=== PATIENT | male | born 1975 | race African-American/Black ===

== ENCOUNTER 2018-06-02 15:11 | Emergency (ER) | payer SELFPAY ==
[2018-06-02 15:48] LABS: Absolute Monocytes 0.8 K/uL (0.1-1.3); Absolute Neutrophil 8.3 K/uL (1.8-8.0); Basophils % 1.2 % (0-1.3); Eosinophils % 2.2 % (0-4.4); Hematocrit 39.7 % (39.6-49.0); Lymphocytes % 17.6 % (15.3-44.8); MCH 25.3 pg (27.0-35.0); MCV 77.4 fL (80-100); MPV 8.5 fL (7.6-11.3); Monocytes % 7.3 % (3.3-12.3); RBC Red Blood Cell Count 5.13 M/uL (4.33-5.43)
[2018-06-02 16:11] LABS: ALT/SGPT 26 U/L (12-78); AST/SGOT 10 U/L (15-37); Albumin 3.4 g/dL (3.4-5.0); Alkaline Phosphatase 85 U/L (45-117); BUN Blood Urea Nitrogen 12 mg/dL (7-18); Bicarbonate 28 mmol/L (21-32); Bilirubin Direct < 0.1 mg/dL (0-0.2); Bilirubin Total 0.2 mg/dL (0.2-1.0); Glucose Level 154 mg/dL (74-106); Lipase 115 U/L (73-393); Magnesium 2.1 mg/dL (1.8-2.4); Potassium 4.2 mmol/L (3.5-5.1); Protein, Total 7.9 g/dL (6.4-8.2); Sodium Level 139 mmol/L (136-145)
[2018-06-02] MEDS ORDERED: NA CHLORIDE 0.9% 1,000 ML ONE (16:20)
--- NOTE | 2018-06-02 18:05 | RAD REPORT ---
EXAM DESCRIPTION: CTAbdomen Pelvis W Contrast - 06/02/2018 5:57 pm CLINICAL HISTORY: Abdominal pain. ABDOMINAL DISTENTION COMPARISON: Abdomen Pelvis W Contrast dated 01/17/2017; CT ABD PELVIS W CONTRAST dated 09/01/2015 TECHNIQUE: Biphasic CT imaging of the abdomen and pelvis was performed with 100 ml non-ionic IV cont rast. All CT scans are performed using dose optimization technique as appropriate and may include automated exposure control or mA/KV adjustment according to patient size. FINDINGS: The lung bases are clear. Diffuse fatty liver is seen. No focal lesion or intrahepatic biliary dilatation. The spleen, pancreas , adrenal glands and kidneys are within normal limits. No bowel obstruction, free air, free fluid or abscess. The appendix is normal. No evidence of signi ficant lymphadenopathy. No suspicious bony findings. IMPRESSION: No acute intra-abdominal or pelvic finding. Fatty liver.
--- NOTE | 2018-06-02 18:27 | EDPHYS ---
Physician Documentation [facility] Name: Willi Foley Age: 43 yrs Sex: Male : 1975 Arrival Date: 06/02/2018 Time: 15:14 Bed 30 Private MD: ED Physician Abraham Odonnell HPI: 06/02 15:30 This 43 yrs old Black Male presents to ER via Ambulatory with complaints of Abdominal cp Problem. 15:31 The patient presents with abdominal distention that is diffuse. Onset: The cp symptoms/episode began/occurred 1 week(s) ago. The symptoms do not radiate. Associated signs and symptoms: Pertinent positives: shortness of breath, Pertinent negatives: blood in stools, chest pain, constipation, diarrhea, fever, vomiting. The symptoms are described as bloated. Historical: - Allergies: 15:19 No Known Allergies; hb - PMHx: 15:19 None; hb - PSHx: 15:19 None; hb - Immunization history:: Adult Immunizations up to date. - Social history:: Smoking status: Patient/guardian denies using tobacco. - Ebola Screening: : No symptoms or risks identified at this time. ROS: 15:35 Constitutional: Negative for body aches, chills, fever, poor PO intake. cp 15:35 Eyes: Negative for injury, pain, redness, and discharge. cp 15:35 ENT: Negative for drainage from ear(s), ear pain, sore throat, difficulty swallowing, difficulty handling secretions. 15:35 Cardiovascular: Negative for chest pain, edema, palpitations. 15:35 Respiratory: Negative for cough, shortness of breath, wheezing. 15:35 Abdomen/GI: Positive for nausea, vomiting, abdominal bloating, Negative for diarrhea, constipation, anorexia, black/tarry stool, rectal bleeding. 15:35 Back: Negative for pain at rest, pain with movement. 15:35 : Negative for urinary symptoms, testicular pain 15:35 Skin: Negative for cellulitis, rash. 15:35 Neuro: Negative for altered mental status, headache, weakness. 15:35 All other systems are negative. Exam: 15:45 Constitutional: The patient appears in no acute distress, alert, awake, cp non-diaphoretic, non-toxic, well developed, well nourished. 15:45 Head/Face: Normocephalic, atraumatic. Eyes: Pupils equal round and reactive to light, cp extra-ocular motions intact. Lids and lashes normal. Conjunctiva and sclera are non-icteric and not injected. Cornea within normal limits. Periorbital areas with no swelling, redness, or edema. ENT: Nares patent. No nasal discharge, no septal abnormalities noted. Tympanic membranes are normal and external auditory canals are clear. Oropharynx with no redness, swelling, or masses, exudates, or evidence of obstruction, uvula midline. Mucous membranes moist. Chest/axilla: Normal chest wall appearance and motion. Nontender with no deformity. No lesions are appreciated. 15:45 Cardiovascular: Rate: normal, Rhythm: regular, Heart sounds: murmur, not appreciated, Edema: is not appreciated, JVD: is not appreciated. 15:45 Respiratory: the patient does not display signs of respiratory distress, Respirations: normal, no use of accessory muscles, no retractions, no splinting, no tachypnea, labored breathing, is not present, Breath sounds: are clear throughout, no decreased breath sounds, no stridor, no wheezing. 15:45 Abdomen/GI: Inspection: abdomen appears normal, Bowel sounds: active, all quadrants, Palpation: soft, in all quadrants, mild abdominal tenderness, in the epigastric area and right upper quadrant, rebound tenderness, is not appreciated, voluntary guarding, is not appreciated, involuntary guarding, is not appreciated. 15:45 Back: pain, is absent, ROM is normal. 15:45 Skin: cellulitis, is not appreciated, no rash present. 15:45 Neuro: Orientation: to person, place \T\ time. Mentation: lucid, able to follow commands, Cerebellar function: is grossly normal, Motor: moves all fours, strength is normal. Vital Signs: 15:18 BP 135 / 80; Pulse 74; Resp 16; Temp 98.1; Pulse Ox 97% on R/A; Weight 127.01 kg; hb Height 5 ft. 9 in. (175.26 cm); Pain 0/10; 16:50 BP 133 / 76; Pulse 78; Resp 18; Pulse Ox 100% on R/A; mg2 19:01 BP 132 / 78; Pulse 77; Resp 18; Pulse Ox 100% on R/A; Pain 0/10; mg2 15:18 Body Mass Index 41.35 (127.01 kg, 175.26 cm) hb MDM: 15:22 Patient medically screened. cp 16:00 Differential diagnosis: cholecystitis, Cholelithiasis, gastritis, pancreatitis, Peptic cp Ulcer Disease, Perf. Duodenal Ulcer, Perf. Gastric Ulcer, Pyelonephritis. 18:25 Data reviewed: vital signs, nurses notes, lab test result(s), radiologic studies, CT cp scan, and as a result, I will discharge patient. 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 18:25 Special discussion: Based on the patient's Hx, exam, and Dx evaluation, there is no cp indication for emergent surgery or inpatient Tx. It is understood by the patient/guardian that if the Sx's persist or worsen they need to return immediately for re-evaluation. 06/02 15:30 Order name: Basic Metabolic Panel; Complete Time: 16:12 cp 06/02 16:12 Interpretation: Normal except: GLUC 154. cp 06/02 15:30 Order name: CBC with Diff; Complete Time: 15:59 cp 06/02 16:00 Interpretation: Normal except: WBC 11.6; HGB 13.0; MCV 77.4; MCH 25.3; RDW 16.7; NEUT A cp 8.3. 06/02 15:30 Order name: Creatinine for Radiology; Complete Time: 16:27 cp 06/02 16:27 Interpretation: Reviewed. cp 06/02 15:30 Order name: Hepatic Function; Complete Time: 16:12 cp 06/02 16:12 Interpretation: Normal except: AST 10; GLOB 4.5; A/G 0.8. cp 06/02 15:30 Order name: Lipase; Complete Time: 16:12 cp 06/02 15:30 Order name: Magnesium; Complete Time: 16:12 cp 06/02 15:30 Order name: IV Saline Lock; Complete Time: 15:37 cp 06/02 15:30 Order name: Labs collected and sent; Complete Time: 15:37 cp 06/02 16:03 Order name: CT Abd/Pelvis - W/Contrast: may give oral contrast; Complete Time: 18:12 cp 06/02 18:12 Interpretation: Report reviewed. cp 06/02 18:12 Order name: PO challenge; Complete Time: 18:44 cp 06/02 18:52 Order name: Urine Dipstick-Ancillary (obtain specimen); Complete Time: 18:56 cp 06/02 18:52 Order name: Urine Microscopic Only cp 06/02 19:01 Order name: Urine Dipstick--Ancillary (enter results) cc Administered Medications: 16:17 Drug: NS 0.9% 1000 ml Route: IV; Rate: 1 bolus; Site: right antecubital; mg2 19:01 Follow up: Response: No adverse reaction; IV Status: Completed infusion mg2 Disposition: 06/03 10:22 Co-signature as Attending Physician, Abraham Odonnell MD. rn Disposition: 06/02/18 18:26 Discharged to Home. Impression: Unspecified abdominal pain. - Condition is Stable. - Discharge Instructions: Abdominal Pain, Adult. - Medication Reconciliation Form, Thank You Letter, Antibiotic Education, Prescription Opioid Use form. - Follow up: Scott Cantor MD; When: 2 - 3 days; Reason: Recheck today's complaints. Signatures: Dispatcher [employer] EDAbraham Salcedo MD MD rn Page, Corey, PA PA cp Vicki Acevedo RN RN hb Gardose, Michele, RN RN mg2 Corrections: (The following items were deleted from the chart) 06/02 19:02 18:26 06/02/2018 18:26 Discharged to Home. Impression: Unspecified abdominal pain. mg2 Condition is Stable. Forms are Medication Reconciliation Form, Thank You Letter, Antibiotic Education, Prescription Opioid Use. Follow up: Scott Cantor; When: 2 - 3 days; Reason: Recheck today's complaints. cp
--- NOTE | 2018-06-02 18:27 | ER ---
Nurse's Notes [facility] Name: Willi Foley Age: 43 yrs Sex: Male : 1975 Arrival Date: 06/02/2018 Time: 15:14 Bed 30 Private MD: Diagnosis: Unspecified abdominal pain Presentation: 06/02 15:15 Presenting complaint: Patient states: Upper abdominal bloating x 1 week. Reports normal hb bowel habits. Transition of care: patient was not received from another setting of care. Onset of symptoms was May 27, 2018. Risk Assessment: Do you want to hurt yourself or someone else? Patient reports no desire to harm self or others. Care prior to arrival: None. 15:15 Method Of Arrival: Ambulatory hb 15:15 Acuity: RESHMA 3 hb 15:30 Initial Sepsis Screen: Does the patient meet any 2 criteria? No. Patient's initial mg2 sepsis screen is negative. Does the patient have a suspected source of infection? No. Patient's initial sepsis screen is negative. Historical: - Allergies: 15:19 No Known Allergies; hb - PMHx: 15:19 None; hb - PSHx: 15:19 None; hb - Immunization history:: Adult Immunizations up to date. - Social history:: Smoking status: Patient/guardian denies using tobacco. - Ebola Screening: : No symptoms or risks identified at this time. Screenin:28 Abuse screen: Denies threats or abuse. Denies injuries from another. Nutritional mg2 screening: No deficits noted. Tuberculosis screening: No symptoms or risk factors identified. Fall Risk None identified. Assessment: 15:28 General: Appears in no apparent distress. comfortable, Behavior is calm, cooperative. mg2 Pain: Complains of pain in abdomen Pain does not radiate. Pain currently is 3 out of 10 on a pain scale. Quality of pain is described as bloating Pain began gradually, 1 week ago Is intermittent. Neuro: Level of Consciousness is awake, alert, obeys commands, Oriented to person, place, time, situation. Cardiovascular: Capillary refill < 3 seconds Patient's skin is warm and dry. Respiratory: Airway is patent Respiratory effort is even, unlabored, Respiratory pattern is regular, symmetrical. GI: Abdomen is round Reports lower abdominal pain, upper abdominal pain, bloating. : No signs and/or symptoms were reported regarding the genitourinary system. EENT: No signs and/or symptoms were reported regarding the EENT system. Derm: Skin is intact, is healthy with good turgor, Skin is pink, warm \T\ dry. normal. Musculoskeletal: Circulation, motion, and sensation intact. Vital Signs: 15:18 BP 135 / 80; Pulse 74; Resp 16; Temp 98.1; Pulse Ox 97% on R/A; Weight 127.01 kg; hb Height 5 ft. 9 in. (175.26 cm); Pain 0/10; 16:50 BP 133 / 76; Pulse 78; Resp 18; Pulse Ox 100% on R/A; mg2 19:01 BP 132 / 78; Pulse 77; Resp 18; Pulse Ox 100% on R/A; Pain 0/10; mg2 15:18 Body Mass Index 41.35 (127.01 kg, 175.26 cm) hb ED Course: 15:14 Patient arrived in ED. as 15:18 Triage completed. hb 15:19 Arm band placed on left wrist. hb 15:20 Gareth Huddleston PA is PHCP. cp 15:20 Abraham Odonnell MD is Attending Physician. cp 15:20 Pradip Esquivel, EDENILSON is Primary Nurse. mg2 15:28 No provider procedures requiring assistance completed. mg2 15:31 Patient has correct armband on for positive identification. Bed in low position. Call mg2 light in reach. Side rails up X 1. Door closed. Warm blanket given. 15:37 Inserted saline lock: 22 gauge in right antecubital area, using aseptic technique. mg2 Blood collected. 17:[address] nj 17:57 CT Abd/Pelvis - W/Contrast: may give oral contrast In Process Unspecified. EDMS 17:57 CT completed. Patient tolerated procedure well. Patient moved back from PR. nj 18:25 Scott Cantor MD is Referral Physician. cp 19:02 IV discontinued, intact, bleeding controlled, No redness/swelling at site. Pressure mg2 dressing applied. Administered Medications: 16:17 Drug: NS 0.9% 1000 ml Route: IV; Rate: 1 bolus; Site: right antecubital; mg2 19:01 Follow up: Response: No adverse reaction; IV Status: Completed infusion mg2 Outcome: 18:26 Discharge ordered by . cp 19:02 Discharged to home ambulatory, with family. mg2 19:02 Condition: stable 19:02 Discharge instructions given to patient, family, Instructed on discharge instructions, follow up and referral plans. Demonstrated understanding of instructions, follow-up care. 19:02 Patient left the ED. mg2 Signatures: Dispatcher [employer] Lianne Greenfield Corey, PA PA cp Baxter, Heather, EDENILSON RN Severiano Greenberg Michele, RN RN mg2
[2018-06-02 19:10] LABS: Urine Blood 2+ (NEG); Urine Glucose NEGATIVE (NEG); Urine Protein NEGATIVE (NEG); Urine pH 6.5 (5.0-7.0)
[2018-06-02 19:27] LABS: Urine Bacteria <20 /HPF (NONE SEEN); Urine Culture Reflex Order NOT NEEDED
== END 2018-06-02 19:02 | disposition home or self-care (01) ==
LOC: ER 15:11
DX: R10.9 Unspecified abdominal pain (principal)
CPT/HCPCS: 36415; 74177; 80048; 80076; 81003; 81015; 83690; 83735; 85025; 96360; 96361; 99284; J7030; Q9967

== ENCOUNTER 2018-08-07 20:45 | Emergency (ER) | payer SELFPAY ==
[2018-08-07] MEDS ORDERED: ONDANSETRON 4 MG (ODT) TAB ONE (21:28)
--- NOTE | 2018-08-07 21:57 | ER ---
Nurse's Notes [facility] Name: Willi Foley Age: 43 yrs Sex: Male : 1975 Arrival Date: 08/07/2018 Time: 20:48 Bed 11 Private MD: Diagnosis: Acute upper respiratory infection, unspecified Presentation: 08/07 20:54 Presenting complaint: Patient states: Cough, congestion, eyes itching since Tuesday. aj1 Patient denies fever. Transition of care: patient was not received from another setting of care. Onset of symptoms was July 2018. Risk Assessment: Do you want to hurt yourself or someone else? Patient reports no desire to harm self or others. Initial Sepsis Screen: Does the patient meet any 2 criteria? No. Patient's initial sepsis screen is negative. Does the patient have a suspected source of infection? Yes: Productive cough/pneumonia. Care prior to arrival: None. 20:54 Method Of Arrival: Ambulatory aj1 20:54 Acuity: RESHMA 4 aj1 Triage Assessment: 20:57 General: Appears in no apparent distress. comfortable, Behavior is calm, cooperative, aj1 appropriate for age. Pain: Denies pain. EENT: Reports nasal congestion nasal discharge. Neuro: Level of Consciousness is awake, alert, obeys commands. Cardiovascular: Patient's skin is warm and dry. Respiratory: Reports cough that is productive, Airway is patent Respiratory effort is even, unlabored, Respiratory pattern is regular, symmetrical. Historical: - Allergies: 20:57 No Known Allergies; aj1 - Home Meds: 20:57 Benadryl Oral [Active]; aj1 - PMHx: 20:57 None; aj1 - PSHx: 20:57 right testicle removed; aj1 - Immunization history:: Flu vaccine is not up to date. - Social history:: Smoking status: Patient/guardian denies using tobacco. - Ebola Screening: : Patient denies travel to an Ebola-affected area in the 21 days before illness onset. - Family history:: not pertinent. - Hospitalizations: : No recent hospitalization is reported. Screenin:10 Abuse screen: Denies threats or abuse. Denies injuries from another. Nutritional aa1 screening: No deficits noted. Tuberculosis screening: No symptoms or risk factors identified. Fall Risk None identified. Assessment: 21:10 General: Appears in no apparent distress. comfortable, Behavior is calm, cooperative, aa1 appropriate for age. Pain: Denies pain. Neuro: Level of Consciousness is awake, alert, obeys commands, Oriented to person, place, time, situation, Moves all extremities. Full function Gait is steady, Speech is normal. Respiratory: Reports cough that is non-productive, Airway is patent Respiratory effort is even, unlabored, Respiratory pattern is regular, symmetrical, Breath sounds are clear bilaterally. GI: Reports nausea, Patient currently denies abdominal pain, diarrhea, vomiting. : No signs and/or symptoms were reported regarding the genitourinary system. EENT: Throat is clear Reports nasal congestion. Derm: Skin is intact, is healthy with good turgor, Skin is pink, warm \T\ dry. Musculoskeletal: Circulation, motion, and sensation intact. Capillary refill < 3 seconds. 22:12 Reassessment: Patient appears in no apparent distress at this time. Patient is alert, aa1 oriented x 3, equal unlabored respirations, skin warm/dry/pink. Discussed d/c \T\ f/u instructions with pt \T\ spouse; denies questions or concerns at this time. Vital Signs: 20:57 BP 151 / 83; Pulse 81; Resp 18; Temp 97.8; Pulse Ox 98% on R/A; Weight 127.01 kg (R); aj1 Height 5 ft. 9 in. (175.26 cm) (R); Pain 0/10; 22:12 BP 144 / 86; Pulse 83; Resp 18; Temp 97.9; Pulse Ox 97% on R/A; aa1 20:57 Body Mass Index 41.35 (127.01 kg, 175.26 cm) aj1 ED Course: 20:48 Patient arrived in ED. al2 20:56 Triage completed. aj1 20:57 Arm band placed on Patient placed in an exam room. aj1 20:59 [facility] Belle [facility]NP [facility] kav 20:59 Gareth Erwin MD is Attending Physician. kav 21:10 Patient has correct armband on for positive identification. Call light in reach. aa1 21:17 Isela Tucker, RN is Primary Nurse. aa1 22:12 No provider procedures requiring assistance completed. Patient did not have IV access aa1 during this emergency room visit. Administered Medications: 21:22 Drug: Zofran 4 mg Route: PO; aa1 22:12 Follow up: Response: No adverse reaction; Nausea is decreased aa1 Outcome: 21:57 Discharge ordered by . walter 22:12 Discharged to home ambulatory, with family. aa1 22:12 Condition: good 22:12 Discharge instructions given to patient, family, Instructed on discharge instructions, follow up and referral plans. medication usage, Demonstrated understanding of instructions, follow-up care, medications, Prescriptions given X 2. 22:13 Patient left the ED. aa1 Signatures: Lu Nevarez RN RN aj1 Isela Tucker RN RN aa1 Delicia Belle, VALIDATION ARCHITECT VALIDATION ARCHITECT Carmina Chambers
--- NOTE | 2018-08-07 21:57 | EDPHYS ---
Physician Documentation [facility] Name: Willi Foley Age: 43 yrs Sex: Male : 1975 Arrival Date: 08/07/2018 Time: 20:48 Bed 11 Private MD: ED Physician Gareth Erwin HPI: 08/07 20:59 This 43 yrs old Black Male presents to ER via Ambulatory with complaints of Flu kav Symptoms. 21:31 Onset: The symptoms/episode began/occurred acutely, 1 day(s) ago. Associated signs and kav symptoms: Pertinent positives: fever. Modifying factors: The patient symptoms are alleviated by nothing. The patient has not experienced similar symptoms in the past. The patient has not recently seen a physician. 21:32 Modifying factors: there are no obvious modifying factors. Associated signs and kav symptoms: Pertinent positives: myalgias, nausea. Severity of symptoms: At their worst the symptoms were moderate this morning. Historical: - Allergies: 20:57 No Known Allergies; aj1 - Home Meds: 20:57 Benadryl Oral [Active]; aj1 - PMHx: 20:57 None; aj1 - PSHx: 20:57 right testicle removed; aj1 - Immunization history:: Flu vaccine is not up to date. - Social history:: Smoking status: Patient/guardian denies using tobacco. - Ebola Screening: : Patient denies travel to an Ebola-affected area in the 21 days before illness onset. - Family history:: not pertinent. - Hospitalizations: : No recent hospitalization is reported. ROS: 21:35 Eyes: Negative for injury, pain, redness, and discharge, ENT: Negative for injury, kav pain, and discharge, Neck: Negative for injury, pain, and swelling, Cardiovascular: Negative for chest pain, palpitations, and edema, Respiratory: Negative for shortness of breath, cough, wheezing, and pleuritic chest pain, Abdomen/GI: Negative for abdominal pain, nausea, vomiting, diarrhea, and constipation, Back: Negative for injury and pain, : Negative for injury, bleeding, discharge, and swelling, MS/Extremity: Negative for injury and deformity, Skin: Negative for injury, rash, and discoloration, Neuro: Negative for headache, weakness, numbness, tingling, and seizure, Psych: Negative for depression, anxiety, suicide ideation, homicidal ideation, and hallucinations, Allergy/Immunology: Negative for hives, rash, and allergies, Endocrine: Negative for neck swelling, polydipsia, polyuria, polyphagia, and marked weight changes, Hematologic/Lymphatic: Negative for swollen nodes, abnormal bleeding, and unusual bruising. 21:35 Constitutional: Positive for body aches, fever. Exam: 21:35 Head/Face: Normocephalic, atraumatic. Eyes: Pupils equal round and reactive to light, kav extra-ocular motions intact. Lids and lashes normal. Conjunctiva and sclera are non-icteric and not injected. Cornea within normal limits. Periorbital areas with no swelling, redness, or edema. ENT: Nares patent. No nasal discharge, no septal abnormalities noted. Tympanic membranes are normal and external auditory canals are clear. Oropharynx with no redness, swelling, or masses, exudates, or evidence of obstruction, uvula midline. Mucous membranes moist. Neck: Trachea midline, no thyromegaly or masses palpated, and no cervical lymphadenopathy. Supple, full range of motion without nuchal rigidity, or vertebral point tenderness. No Meningismus. Chest/axilla: Normal chest wall appearance and motion. Nontender with no deformity. No lesions are appreciated. Cardiovascular: Regular rate and rhythm with a normal S1 and S2. No gallops, murmurs, or rubs. Normal PMI, no JVD. No pulse deficits. Respiratory: Lungs have equal breath sounds bilaterally, clear to auscultation and percussion. No rales, rhonchi or wheezes noted. No increased work of breathing, no retractions or nasal flaring. Abdomen/GI: Soft, non-tender, with normal bowel sounds. No distension or tympany. No guarding or rebound. No evidence of tenderness throughout. Back: No spinal tenderness. No costovertebral tenderness. Full range of motion. Skin: Warm, dry with normal turgor. Normal color with no rashes, no lesions, and no evidence of cellulitis. MS/ Extremity: Pulses equal, no cyanosis. Neurovascular intact. Full, normal range of motion. Neuro: Awake and alert, GCS 15, oriented to person, place, time, and situation. Cranial nerves II-XII grossly intact. Motor strength 5/5 in all extremities. Sensory grossly intact. Cerebellar exam normal. Normal gait. Psych: Awake, alert, with orientation to person, place and time. Behavior, mood, and affect are within normal limits. 21:35 Constitutional: The patient appears in no acute distress, alert, awake, comfortable, non-diaphoretic, non-toxic, well developed, well hydrated, well groomed, well nourished, febrile. Vital Signs: 20:57 BP 151 / 83; Pulse 81; Resp 18; Temp 97.8; Pulse Ox 98% on R/A; Weight 127.01 kg (R); aj1 Height 5 ft. 9 in. (175.26 cm) (R); Pain 0/10; 22:12 BP 144 / 86; Pulse 83; Resp 18; Temp 97.9; Pulse Ox 97% on R/A; aa1 20:57 Body Mass Index 41.35 (127.01 kg, 175.26 cm) aj1 MDM: 20:59 Medical screening is not applicable. kav 08/07 20:59 Order name: Influenza Screen (a \T\ B); Complete Time: 21:56 kav Administered Medications: 21:22 Drug: Zofran 4 mg Route: PO; aa1 22:12 Follow up: Response: No adverse reaction; Nausea is decreased aa1 Disposition: 08/08 06:40 Co-signature as Attending Physician, Gareth Erwin MD I agree with the assessment and omid plan of care. Disposition: 08/07/18 21:57 Discharged to Home. Impression: Acute upper respiratory infection, unspecified. - Condition is Stable. - Discharge Instructions: Upper Respiratory Infection, Adult. - Prescriptions for Zithromax Z- Rock 250 mg Oral Tablet - take 1 tablet by ORAL route as directed for 5 days Day 1 - take two (2) tablets one time. Day 2, 3, 4 , 5 take one (1) tablet once daily.; 6 tablet. benzonatate 100 mg Oral Capsule - take 1 capsule by ORAL route 3 times per day; 30 capsule. - Work release form, Medication Reconciliation Form, Thank You Letter, Antibiotic Education form. - Follow up: Private Physician; When: 2 - 3 days; Reason: Recheck today's complaints, Continuance of care, Re-evaluation by your physician. - Problem is new. - Symptoms are unchanged. Signatures: Dispatcher MedHoNew Sunrise Regional Treatment CenterLu Branham RN RN aj1 Isela Tucker RN RN aa1 Gareth Erwin, Delicia Chavez MD, cha, SCALE MODEL MAKER SCALE MODEL MAKER kav Corrections: (The following items were deleted from the chart) 08/07 22:13 21:57 08/07/2018 21:57 Discharged to Home. Impression: Acute upper respiratory aa1 infection, unspecified. Condition is Stable. Forms are Medication Reconciliation Form, Thank You Letter, Antibiotic Education, Prescription Opioid Use. Follow up: Private Physician; When: 2 - 3 days; Reason: Recheck today's complaints, Continuance of care, Re-evaluation by your physician. Problem is new. Symptoms are unchanged. kav
== END 2018-08-07 22:13 | disposition home or self-care (01) ==
LOC: ER 20:45
DX: J06.9 Acute upper respiratory infection, unspecified (principal)
CPT/HCPCS: 87804; 99283

== ENCOUNTER 2018-08-31 15:23 | Emergency (ER) | payer SELFPAY ==
[2018-08-31 17:25] LABS: Absolute Lymphocytes (CBC) 2.3 K/uL (0.7-4.9); Absolute Monocytes 1.2 K/uL (0.1-1.3); Absolute Neutrophil 8.2 K/uL (1.8-8.0); Basophils % 1.5 % (0-1.3); Eosinophils % 2.5 % (0-4.4); Hematocrit 40.6 % (39.6-49.0); Lymphocytes % 18.8 % (15.3-44.8); MPV 8.4 fL (7.6-11.3); Monocytes % 10.1 % (3.3-12.3); RBC Red Blood Cell Count 5.18 M/uL (4.33-5.43)
[2018-08-31 17:53] LABS: BUN Blood Urea Nitrogen 12 mg/dL (7-18); Bicarbonate 32 mmol/L (21-32); Glucose Level 123 mg/dL (74-106); Magnesium 2.2 mg/dL (1.8-2.4); Potassium 4.4 mmol/L (3.5-5.1); Sodium Level 139 mmol/L (136-145); Troponin (Emerg Dept Use Only) < 0.02 ng/mL (0.0-0.045)
[2018-08-31 17:59] LABS: NT PRO-BNP < 5 pg/mL (<125)
--- NOTE | 2018-08-31 18:30 | RAD REPORT ---
EXAM DESCRIPTION: [place] Single View08/31/2018 6:14 pm CLINICAL HISTORY: Chest pain COMPARISON: 2017 FINDINGS: The lungs appear clear of acute infiltrate. The heart is normal size IMPRESSION: No acute abnormalities displayed
--- NOTE | 2018-08-31 19:14 | ER ---
Nurse's Notes [facility] Name: Willi Foley Age: 43 yrs Sex: Male : 1975 Arrival Date: 08/31/2018 Time: 15:29 Bed 16 Private MD: None, None Diagnosis: Cough;Chest pain on breathing Presentation: 08/31 15:41 Presenting complaint: Patient states: pain to my L lower chest wall, started this morning. I am coughing and its worse when I cough. no congestion, no sore throat, no fever. just started when I got up with morning. Transition of care: patient was not received from another setting of care. Onset of symptoms was August 31, 2018 at 08:00. Risk Assessment: Do you want to hurt yourself or someone else? Patient reports no desire to harm self or others. Initial Sepsis Screen: Does the patient meet any 2 criteria? No. Patient's initial sepsis screen is negative. Does the patient have a suspected source of infection? No. Patient's initial sepsis screen is negative. Care prior to arrival: None. 15:41 Acuity: RESHMA 3 15:41 Method Of Arrival: Ambulatory Triage Assessment: 15:41 General: Appears in no apparent distress. uncomfortable, Behavior is calm, cooperative, ch appropriate for age. Pain: Complains of pain in left lateral anterior chest and left breast Pain currently is 8 out of 10 on a pain scale. Pain began gradually, several hours ago. Neuro: No deficits noted. Respiratory: Airway is patent Respiratory effort is even, unlabored. Historical: - Allergies: 15:41 No Known Allergies; - Home Meds: 15:41 none [Active]; - PMHx: 15:41 None; - PSHx: 15:41 None; - Immunization history:: Adult Immunizations Flu vaccine is not up to date. - Social history:: Smoking status: Patient/guardian denies using tobacco, Patient/guardian denies using alcohol, street drugs. - Ebola Screening: : Patient negative for fever greater than or equal to 101.5 degrees Fahrenheit, and additional compatible Ebola Virus Disease symptoms Patient denies exposure to infectious person Patient denies travel to an Ebola-affected area in the 21 days before illness onset No symptoms or risks identified at this time. Screenin:55 Abuse screen: Denies threats or abuse. Nutritional screening: No deficits noted. rb1 Tuberculosis screening: No symptoms or risk factors identified. Fall Risk None identified. Assessment: 16:55 General: Appears in no apparent distress. comfortable, obese, Behavior is calm, rb1 cooperative, Denies fever. Pain: Complains of pain in left lateral anterior chest. Neuro: Level of Consciousness is awake, alert, obeys commands, Oriented to person, place, time, situation. Cardiovascular: Capillary refill < 3 seconds is brisk in bilateral fingers. Respiratory: Airway is patent Respiratory effort is even, unlabored, Respiratory pattern is regular, symmetrical. Respiratory: Reports cough that is non-productive. GI: No signs and/or symptoms were reported involving the gastrointestinal system. : No signs and/or symptoms were reported regarding the genitourinary system. Derm: Skin is dry, Skin is normal, Skin temperature is warm. 17:55 Reassessment: Patient appears in no apparent distress at this time. No changes from rb1 previously documented assessment. 18:45 Reassessment: Patient appears in no apparent distress at this time. Patient and/or rb1 family updated on plan of care and expected duration. Pain level reassessed. Patient is alert, oriented x 3, equal unlabored respirations, skin warm/dry/pink. 20:08 Reassessment: Patient appears in no apparent distress at this time. Patient and/or tl2 family updated on plan of care and expected duration. Pain level reassessed. Patient is alert, oriented x 3, equal unlabored respirations, skin warm/dry/pink. pt verbalized understanding of discharge instructions, need for follow up. Vital Signs: 15:41 BP 116 / 92; Pulse 83; Resp 16; Temp 99.7; Pulse Ox 99% on R/A; Weight 136.08 kg; ch Height 5 ft. 9 in. (175.26 cm); Pain 8/10; 16:40 BP 128 / 84; Pulse 77; Resp 17; Pulse Ox 99% on R/A; rb1 17:40 BP 136 / 79; Pulse 73; Resp 16; Pulse Ox 97% on R/A; rb1 18:20 BP 136 / 79; Pulse 72; Resp 17; Temp 97.7; Pulse Ox 97% ; hs1 20:08 BP 124 / 70; Pulse 74; Resp 18; Pulse Ox 96% on R/A; tl2 15:41 Body Mass Index 44.30 (136.08 kg, 175.26 cm) ED Course: 15:29 Patient arrived in ED. sb2 15:29 None, None is Private Physician. sb2 15:41 Triage completed. ch 15:41 Arm band placed on left wrist. Patient placed in waiting room. EKG completed in triage. Results shown to MD. 16:07 EKG done, by information technology administrator. reviewed by Josh Bradford MD. 3 16:49 Yolie Grossman FNP-C is [facility]. kb 16:49 Josh Bradford MD is Attending Physician. kb 16:50 Lorenza Rosario, RN is Primary Nurse. rb1 16:55 Patient has correct armband on for positive identification. Bed in low position. Call rb1 light in reach. Side rails up X 1. campus monitor on. Pulse ox on. NIBP on. 17:15 Inserted saline lock: 22 gauge in left antecubital area, using aseptic technique. Blood rb1 collected. 17:23 Flu Sent. rb1 18:15 XRAY Chest (1 view) In Process Unspecified. EDNJ 18:55 Report given to EDENILSON Bales. rb1 18:59 EKG done, by ED staff, reviewed by Yolie GARCIA. 5 20:08 No provider procedures requiring assistance completed. IV discontinued, intact, tl2 bleeding controlled, No redness/swelling at site. Pressure dressing applied. Administered Medications: 19:53 Drug: TORadol 30 mg Route: IVP; Site: left antecubital; tl2 20:12 Follow up: Response: No adverse reaction; Medication administered at discharge. tl2 Outcome: 19:14 Discharge ordered by . kb 20:11 Discharged to home ambulatory, with family. tl2 20:11 Condition: stable 20:11 Discharge instructions given to patient, family, Instructed on discharge instructions, follow up and referral plans. medication usage, Demonstrated understanding of instructions, follow-up care, medications. 20:13 Patient left the ED. tl2 Signatures: Dispatcher [employer] EDNJ Yolie Grossman FNP-C FNP-Ckb Hammond, Christina, RN RN Lorenza Rosario, Amairani Wilkerson RN, RN RN tl2 Anali Hoang 5 Ofelia Jerome 2 Melinda Daly sm3 Rachelle oRlle hs1
--- NOTE | 2018-08-31 19:14 | EDPHYS ---
Physician Documentation [facility] Name: Willi Foley Age: 43 yrs Sex: Male : 1975 Arrival Date: 08/31/2018 Time: 15:29 Bed 16 Private MD: None, None ED Physician Josh Bradford HPI: 08/31 17:12 This 43 yrs old Black Male presents to ER via Ambulatory with complaints of Painful kb Cough. 17:12 The patient or guardian reports cough, that is intermittent, described as mild, with no kb sputum. Onset: The symptoms/episode began/occurred this morning. Severity of symptoms: At their worst the symptoms were moderate, in the emergency department the symptoms are unchanged. Modifying factors: The symptoms are alleviated by nothing, the symptoms are aggravated by nothing. Associated signs and symptoms: Pertinent positives: chest pain, Pertinent negatives: diarrhea, ear ache, fever, nausea, rhinorrhea, sore throat, vomiting. The patient has not experienced similar symptoms in the past. The patient has not recently seen a physician. Pt reports cough and left lower anterior chest pain that started this morning around 0900. States chest pain is worse with cough and movement. Historical: - Allergies: 15:41 No Known Allergies; ch - Home Meds: 15:41 none [Active]; ch - PMHx: 15:41 None; ch - PSHx: 15:41 None; ch - Immunization history:: Adult Immunizations Flu vaccine is not up to date. - Social history:: Smoking status: Patient/guardian denies using tobacco, Patient/guardian denies using alcohol, street drugs. - Ebola Screening: : Patient negative for fever greater than or equal to 101.5 degrees Fahrenheit, and additional compatible Ebola Virus Disease symptoms Patient denies exposure to infectious person Patient denies travel to an Ebola-affected area in the 21 days before illness onset No symptoms or risks identified at this time. ROS: 17:10 Constitutional: Negative for fever, chills, and weight loss, ENT: Negative for injury, kb pain, and discharge, Abdomen/GI: Negative for abdominal pain, nausea, vomiting, diarrhea, and constipation, Back: Negative for injury and pain, : Negative for injury, bleeding, discharge, and swelling, MS/Extremity: Negative for injury and deformity, Skin: Negative for injury, rash, and discoloration, Neuro: Negative for headache, weakness, numbness, tingling, and seizure. 17:10 Cardiovascular: Positive for chest pain, with cough, with movement, of the left lateral anterior chest, Negative for edema, orthopnea, palpitations, paroxysmal nocturnal dyspnea. 17:10 Respiratory: Positive for cough, Negative for dyspnea on exertion, hemoptysis, orthopnea, pleurisy, shortness of breath, sputum production, wheezing. Exam: 17:11 Constitutional: This is a well developed, well nourished patient who is awake, alert, kb and in no acute distress. Head/Face: Normocephalic, atraumatic. Neck: Trachea midline, no thyromegaly or masses palpated, and no cervical lymphadenopathy. Supple, full range of motion without nuchal rigidity, or vertebral point tenderness. No Meningismus. Chest/axilla: Normal chest wall appearance and motion. Nontender with no deformity. No lesions are appreciated. Cardiovascular: Regular rate and rhythm with a normal S1 and S2. No gallops, murmurs, or rubs. Normal PMI, no JVD. No pulse deficits. Respiratory: Lungs have equal breath sounds bilaterally, clear to auscultation and percussion. No rales, rhonchi or wheezes noted. No increased work of breathing, no retractions or nasal flaring. Abdomen/GI: Soft, non-tender, with normal bowel sounds. No distension or tympany. No guarding or rebound. No evidence of tenderness throughout. Skin: Warm, dry with normal turgor. Normal color with no rashes, no lesions, and no evidence of cellulitis. MS/ Extremity: Pulses equal, no cyanosis. Neurovascular intact. Full, normal range of motion. Neuro: Awake and alert, GCS 15, oriented to person, place, time, and situation. Cranial nerves II-XII grossly intact. Motor strength 5/5 in all extremities. Sensory grossly intact. Cerebellar exam normal. Normal gait. Vital Signs: 15:41 BP 116 / 92; Pulse 83; Resp 16; Temp 99.7; Pulse Ox 99% on R/A; Weight 136.08 kg; ch Height 5 ft. 9 in. (175.26 cm); Pain 8/10; 16:40 BP 128 / 84; Pulse 77; Resp 17; Pulse Ox 99% on R/A; rb1 17:40 BP 136 / 79; Pulse 73; Resp 16; Pulse Ox 97% on R/A; rb1 18:20 BP 136 / 79; Pulse 72; Resp 17; Temp 97.7; Pulse Ox 97% ; hs1 20:08 BP 124 / 70; Pulse 74; Resp 18; Pulse Ox 96% on R/A; tl2 15:41 Body Mass Index 44.30 (136.08 kg, 175.26 cm) MDM: 16:49 Patient medically screened. kb 17:11 Data reviewed: vital signs, nurses notes. Data interpreted: Pulse oximetry: on room air kb is 99 %. Interpretation: normal. 19:13 Counseling: I had a detailed discussion with the patient and/or guardian regarding: the kb historical points, exam findings, and any diagnostic results supporting the discharge/admit diagnosis, lab results, radiology results, the need for outpatient follow up, a family practitioner, to return to the emergency department if symptoms worsen or persist or if there are any questions or concerns that arise at home. 08/31 16:53 Order name: Basic Metabolic Panel; Complete Time: 18:05 kb 08/31 16:53 Order name: CBC with Diff; Complete Time: 17:27 kb 08/31 16:53 Order name: Magnesium; Complete Time: 18:05 kb 08/31 16:53 Order name: NT PRO-BNP; Complete Time: 18:05 kb 08/31 16:53 Order name: Troponin (emerg Dept Use Only); Complete Time: 18:05 kb 08/31 16:53 Order name: Flu; Complete Time: 17:51 kb 08/31 15:43 Order name: EKG; Complete Time: 15:43 ch 08/31 15:43 Order name: EKG - Nurse/Tech; Complete Time: 17:23 ch 08/31 15:43 Order name: XRAY Chest (1 view); Complete Time: 18:36 ch 08/31 16:53 Order name: Cardiac monitoring; Complete Time: 18:44 kb 08/31 16:53 Order name: IV Saline Lock; Complete Time: 17:23 kb 08/31 18:38 Order name: EKG; Complete Time: 18:39 kb 08/31 18:38 Order name: Troponin (emerg Dept Use Only); Complete Time: 19:13 kb 08/31 16:53 Order name: Labs collected and sent; Complete Time: 17:23 kb 08/31 16:53 Order name: O2 Per Protocol; Complete Time: 17:23 kb 08/31 16:53 Order name: O2 Sat Monitoring; Complete Time: 17:23 kb 08/31 18:38 Order name: EKG - Nurse/Tech; Complete Time: 19:01 kb Administered Medications: 19:53 Drug: TORadol 30 mg Route: IVP; Site: left antecubital; tl2 20:12 Follow up: Response: No adverse reaction; Medication administered at discharge. tl2 Disposition: 09/01 07:15 Co-signature as Attending Physician, Josh Bradford MD I agree with the assessment and kdr plan of care. Disposition: 08/31/18 19:14 Discharged to Home. Impression: Cough, Chest pain on breathing. - Condition is Stable. - Discharge Instructions: Costochondritis, [id number], Chest Wall Pain, [id number]-[id number], Cough, Adult, [id number]. - Medication Reconciliation Form, Thank You Letter, Antibiotic Education, Prescription Opioid Use, Work release form form. - Follow up: Emergency Department; When: As needed; Reason: Worsening of condition. Follow up: Private Physician; When: 2 - 3 days; Reason: Recheck today's complaints, Continuance of care, Re-evaluation by your physician. Signatures: Dispatcher [employer] EDCO Yolie Grossman, GENERAL ROAD SUPERVISOR-C GENERAL ROAD SUPERVISOR-Kenisha Go, EDENILSON RN Josh Bradford MD MD [facility] Amairani Willams RN RN tl2 Corrections: (The following items were deleted from the chart) 08/31 20:13 19:14 08/31/2018 19:14 Discharged to Home. Impression: Cough; Chest pain on breathing. tl2 Condition is Stable. Forms are Medication Reconciliation Form, Thank You Letter, Antibiotic Education, Prescription Opioid Use. Follow up: Emergency Department; When: As needed; Reason: Worsening of condition. Follow up: Private Physician; When: 2 - 3 days; Reason: Recheck today's complaints, Continuance of care, Re-evaluation by your physician. kb
[2018-08-31] MEDS ORDERED: KETOROLAC 30 MG/ML INJ ONE (19:56)
--- NOTE | 2018-09-01 07:47 | EKG ---
Test Date: 2018-08-31 Test Time: 18:52:16 Receiving Manager: JEANNIE MEASUREMENT RESULTS: Intervals: Rate: 67 ND: 186 QRSD: 96 QT: 376 QTc: 397 [place]: P: 35 ND: 186 QRS: 58 T: 32 INTERPRETIVE STATEMENTS: Normal sinus rhythm Normal ECG Compared to ECG 08/31/2018 15:42:40 Right-axis deviation no longer present T-wave abnormality no longer present Electronically Signed On 09-01-18 07:45:54 GARMENT FITTER by Reji Tran
--- NOTE | 2018-09-01 07:48 | EKG ---
Test Date: 2018-08-31 Test Time: 15:42:40 Pay Station Collector: LASHAUN MEASUREMENT RESULTS: Intervals: Rate: 80 WV: 178 QRSD: 94 QT: 362 QTc: 417 [place]: P: 51 WV: 178 QRS: 92 T: -4 INTERPRETIVE STATEMENTS: Normal sinus rhythm Rightward axis Nonspecific T wave abnormality Abnormal ECG Compared to ECG 01/17/2017 05:58:40 Right-axis deviation now present T-wave abnormality still present Electronically Signed On 09-01-18 07:46:08 BIOMEDICAL FIELD SERVICE ENGINEER by Reji Tran
== END 2018-08-31 20:13 | disposition home or self-care (01) ==
LOC: ER 15:23
DX: R07.1 Chest pain on breathing (principal)
CPT/HCPCS: 36415; 71045; 80048; 83735; 83880; 84484; 85025; 87804; 93005; 96374; 99285

== ENCOUNTER 2018-11-05 21:06 | Emergency (ER) | payer SELFPAY ==
--- NOTE | 2018-11-05 22:37 | ER ---
Nurse's Notes [facility] Name: Willi Foley Age: 43 yrs Sex: Male : 1975 Arrival Date: 11/05/2018 Time: 21:10 Bed 19 Private MD: Diagnosis: viral syndrome Presentation: 11/05 21:21 Presenting complaint: Patient states: HEADACHE, CHILLS, BODY ACHES, CONGESTION SINCE ak1 THIS MORNING. Transition of care: patient was not received from another setting of care. Onset of symptoms was November 05, 2018. Risk Assessment: Do you want to hurt yourself or someone else? Patient reports no desire to harm self or others. Care prior to arrival: None. 21:21 Method Of Arrival: Ambulatory ak1 21:21 Acuity: RESHMA 4 ak1 23:10 Initial Sepsis Screen: Does the patient meet any 2 criteria? No. Patient's initial tl2 sepsis screen is negative. Does the patient have a suspected source of infection? No. Patient's initial sepsis screen is negative. Triage Assessment: 21:23 General: Appears in no apparent distress. Behavior is calm, cooperative. ak1 Historical: - Allergies: 21:23 No Known Allergies; ak1 - Home Meds: 21:23 None [Active]; ak1 - PMHx: 21:23 None; ak1 - PSHx: 21:23 TESTICLE REMOVAL; ak1 - Immunization history:: Adult Immunizations unknown. - Social history:: Smoking status: Patient/guardian denies using tobacco. - Ebola Screening: : No symptoms or risks identified at this time. Screenin:20 Abuse screen: Denies threats or abuse. Nutritional screening: No deficits noted. tl2 Tuberculosis screening: No symptoms or risk factors identified. Fall Risk None identified. Assessment: 22:20 General: Appears in no apparent distress. comfortable, Behavior is calm, cooperative, tl2 appropriate for age. Pain: Complains of pain in headache. Neuro: Level of Consciousness is awake, alert, obeys commands, Oriented to person, place, time, situation. Cardiovascular: Denies chest pain. Respiratory: Reports cough that is productive, Airway is patent Respiratory effort is even, unlabored, Respiratory pattern is regular, symmetrical. GI: No signs and/or symptoms were reported involving the gastrointestinal system. : No signs and/or symptoms were reported regarding the genitourinary system. Derm: Skin is pink, warm \T\ dry. 23:05 Reassessment: Patient appears in no apparent distress at this time. Patient and/or tl2 family updated on plan of care and expected duration. Pain level reassessed. Patient is alert, oriented x 3, equal unlabored respirations, skin warm/dry/pink. pt verbalized understanding of discharge instructions, need for follow up and prescription usage. Vital Signs: 21:21 BP 140 / 84; Pulse 101; Resp 18; Temp 99.1(O); Pulse Ox 96% on R/A; Weight 136.08 kg ak1 (R); Height 5 ft. 9 in. (175.26 cm) (R); Pain 7/10; 22:10 BP 141 / 84; Pulse 98; Resp 16; Temp 100.1(O); Pulse Ox 100% on R/A; mt 21:21 Body Mass Index 44.30 (136.08 kg, 175.26 cm) ak1 ED Course: 21:10 Patient arrived in ED. es 21:21 Arm band placed on Patient placed in waiting room, Patient notified of wait time. ak1 21:22 Triage completed. ak1 22:09 Darwin Viramontes MD is Attending Physician. tw4 22:20 Patient has correct armband on for positive identification. Bed in low position. Call tl2 light in reach. Side rails up X 1. 22:20 No provider procedures requiring assistance completed. Patient did not have IV access tl2 during this emergency room visit. 22:38 Amairani Willams, EDENILSON is Primary Nurse. tl2 Administered Medications: 22:52 Drug: Tamiflu 75 mg Route: PO; tl2 23:11 Follow up: Response: No adverse reaction; Medication administered at discharge. tl2 22:53 Drug: TORadol 60 mg Route: IM; Site: right deltoid; tl2 23:11 Follow up: Response: No adverse reaction; Medication administered at discharge. tl2 Outcome: 22:36 Discharge ordered by . tw4 23:10 Discharged to home ambulatory, with family. tl2 23:10 Condition: stable 23:10 Discharge instructions given to patient, family, Instructed on discharge instructions, follow up and referral plans. medication usage, Demonstrated understanding of instructions, follow-up care, medications, Prescriptions given X 2. 23:13 Patient left the ED. tl2 Signatures: Donna Lopez Amber, RN RN ak1 Amairani Willams RN RN tl2 Marleny Storey mt, Terrence, MD MD tw4
[2018-11-05] MEDS ORDERED: OSELTAMIVIR 75 MG CAP ONE (22:53)
[2018-11-05] MEDS ORDERED: KETOROLAC 30 MG/ML INJ ONE (22:54)
--- NOTE | 2018-11-06 23:16 | EDPHYS ---
Physician Documentation [facility] Name: Willi Foley Age: 43 yrs Sex: Male : 1975 Arrival Date: 11/05/2018 Time: 21:10 Bed 19 Private MD: ED Physician Darwin Viramontes HPI: 11/06 06:13 This 43 yrs old Black Male presents to ER via Ambulatory with complaints of Flu tw4 Symptoms. 06:13 The patient or guardian reports cough. Onset: The symptoms/episode began/occurred tw4 today. Modifying factors: The symptoms are alleviated by nothing. the symptoms are aggravated by nothing. Severity of symptoms: At their worst the symptoms were moderate in the emergency department the symptoms are unchanged. The patient has not experienced similar symptoms in the past. Historical: - Allergies: 11/05 21:23 No Known Allergies; ak1 - Home Meds: 21:23 None [Active]; ak1 - PMHx: 21:23 None; ak1 - PSHx: 21:23 TESTICLE REMOVAL; ak1 - Immunization history:: Adult Immunizations unknown. - Social history:: Smoking status: Patient/guardian denies using tobacco. - Ebola Screening: : No symptoms or risks identified at this time. ROS: 11/06 06:13 Cardiovascular: Negative for chest pain, palpitations, and edema, Respiratory: Negative tw4 for shortness of breath, cough, wheezing, and pleuritic chest pain, Abdomen/GI: Negative for abdominal pain, nausea, vomiting, diarrhea, and constipation. Constitutional: Positive for fever. Exam: 06:13 Constitutional: This is a well developed, well nourished patient who is awake, alert, tw4 and in no acute distress. Head/Face: Normocephalic, atraumatic. Chest/axilla: Normal chest wall appearance and motion. Nontender with no deformity. No lesions are appreciated. Cardiovascular: Regular rate and rhythm with a normal S1 and S2. No gallops, murmurs, or rubs. Normal PMI, no JVD. No pulse deficits. Respiratory: Lungs have equal breath sounds bilaterally, clear to auscultation and percussion. No rales, rhonchi or wheezes noted. No increased work of breathing, no retractions or nasal flaring. Abdomen/GI: Soft, non-tender, with normal bowel sounds. No distension or tympany. No guarding or rebound. No evidence of tenderness throughout. MS/ Extremity: Pulses equal, no cyanosis. Neurovascular intact. Full, normal range of motion. Neuro: Awake and alert, GCS 15, oriented to person, place, time, and situation. Cranial nerves II-XII grossly intact. Motor strength 5/5 in all extremities. Sensory grossly intact. Cerebellar exam normal. Normal gait. Vital Signs: 11/05 21:21 BP 140 / 84; Pulse 101; Resp 18; Temp 99.1(O); Pulse Ox 96% on R/A; Weight 136.08 kg ak1 (R); Height 5 ft. 9 in. (175.26 cm) (R); Pain 03/07; 22:10 BP 141 / 84; Pulse 98; Resp 16; Temp 100.1(O); Pulse Ox 100% on R/A; mt 21:21 Body Mass Index 44.30 (136.08 kg, 175.26 cm) ak1 MDM: 22:09 Patient medically screened. tw4 11/06 06:13 Data reviewed: vital signs, nurses notes. Data interpreted: Pulse oximetry: tw4 Interpretation: normal. Counseling: I had a detailed discussion with the patient and/or guardian regarding: the historical points, exam findings, and any diagnostic results supporting the discharge/admit diagnosis, lab results. 11/05 21:21 Order name: Flu ak1 Administered Medications: 11/05 22:52 Drug: Tamiflu 75 mg Route: PO; tl2 23:11 Follow up: Response: No adverse reaction; Medication administered at discharge. tl2 22:53 Drug: TORadol 60 mg Route: IM; Site: right deltoid; tl2 23:11 Follow up: Response: No adverse reaction; Medication administered at discharge. tl2 Disposition: 11/05/18 22:36 Discharged to Home. Impression: viral syndrome. - Condition is Stable. - Discharge Instructions: Viral Respiratory Infection. - Prescriptions for Ibuprofen 800 mg Oral Tablet - take 1 tablet by ORAL route every 8 hours As needed take with food; 30 tablet. Tamiflu 75 mg Oral Capsule - take 1 tablet by ORAL route every 12 hours for 5 days; 10 tablet. - Work release form, Medication Reconciliation Form, Thank You Letter, Antibiotic Education, Prescription Opioid Use form. - Follow up: Private Physician; When: Upon discharge from the Emergency Department; Reason: If symptoms return, Recheck today's complaints, Continuance of care. - Problem is new. - Symptoms have improved. Signatures: Dispatcher [employer] EDGhada Christianson RN RN ak1 Amairani Willams RN RN tl2 Darwin Viramontes MD MD tw4 Corrections: (The following items were deleted from the chart) 23:13 22:36 11/05/2018 22:36 Discharged to Home. Impression: viral syndrome. Condition is tl2 Stable. Forms are Medication Reconciliation Form, Thank You Letter, Antibiotic Education, Prescription Opioid Use. Follow up: Private Physician; When: Upon discharge from the Emergency Department; Reason: If symptoms return, Recheck today's complaints, Continuance of care. Problem is new. Symptoms have improved. tw4
== END 2018-11-05 23:13 | disposition home or self-care (01) ==
LOC: ER 21:06
DX: B34.9 Viral infection, unspecified (principal)
CPT/HCPCS: 87804; 96372; 99283

== ENCOUNTER 2019-03-19 20:56 | Emergency (ER) | payer SELFPAY ==
--- NOTE | 2019-03-19 21:36 | EDPHYS ---
Physician Documentation [facility] Name: Willi Foley Age: 44 yrs Sex: Male : 1975 Arrival Date: 03/19/2019 Time: 21:03 Bed 16 Private MD: ED Physician Gareth Erwin HPI: 03/19 21:27 This 44 yrs old Black Male presents to ER via Ambulatory with complaints of Elbow pain. omid 21:27 The patient or guardian complains of decreased range of motion, pain. The complaints omid affect the right elbow. Context: The problem was sustained at an unknown location. Onset: The symptoms/episode began/occurred 5 day(s) ago. Treatment prior to arrival includes: no previous treatment. Modifying factors: The symptoms are alleviated by remaining still, the symptoms are aggravated by movement, lifting weight, bending arm. Associated signs and symptoms: The patient has no apparent associated signs or symptoms. Severity of symptoms: At their worst the symptoms were mild, moderate, in the emergency department the symptoms are unchanged. The patient has experienced similar episodes in the past, a few times. Historical: - Allergies: 21:23 No Known Allergies; ak1 - Home Meds: 21:23 None [Active]; ak1 - PMHx: 21:23 None; ak1 - PSHx: 21:23 TESTICLE REMOVAL; ak1 - Immunization history:: Adult Immunizations unknown. - Social history:: Smoking status: Patient/guardian denies using tobacco. - Ebola Screening: : No symptoms or risks identified at this time. - Family history:: not pertinent. ROS: 21:27 Constitutional: Negative for fever, chills, and weight loss, Eyes: Negative for injury, omid pain, redness, and discharge, ENT: Negative for injury, pain, and discharge, Neck: Negative for injury, pain, and swelling, Cardiovascular: Negative for chest pain, palpitations, and edema, Respiratory: Negative for shortness of breath, cough, wheezing, and pleuritic chest pain, Abdomen/GI: Negative for abdominal pain, nausea, vomiting, diarrhea, and constipation, Back: Negative for injury and pain, : Negative for injury, bleeding, discharge, and swelling, Skin: Negative for injury, rash, and discoloration, Neuro: Negative for headache, weakness, numbness, tingling, and seizure, Psych: Negative for depression, anxiety, suicide ideation, homicidal ideation, and hallucinations, Allergy/Immunology: Negative for hives, rash, and allergies, Endocrine: Negative for neck swelling, polydipsia, polyuria, polyphagia, and marked weight changes, Hematologic/Lymphatic: Negative for swollen nodes, abnormal bleeding, and unusual bruising. 21:27 MS/extremity: Positive for decreased range of motion, pain, tenderness, of the right elbow. Exam: 21:27 Constitutional: This is a well developed, well nourished patient who is awake, alert, omid and in no acute distress. Head/Face: Normocephalic, atraumatic. Eyes: Pupils equal round and reactive to light, extra-ocular motions intact. Lids and lashes normal. Conjunctiva and sclera are non-icteric and not injected. Cornea within normal limits. Periorbital areas with no swelling, redness, or edema. ENT: Nares patent. No nasal discharge, no septal abnormalities noted. Tympanic membranes are normal and external auditory canals are clear. Oropharynx with no redness, swelling, or masses, exudates, or evidence of obstruction, uvula midline. Mucous membranes moist. Neck: Trachea midline, no thyromegaly or masses palpated, and no cervical lymphadenopathy. Supple, full range of motion without nuchal rigidity, or vertebral point tenderness. No Meningismus. Chest/axilla: Normal chest wall appearance and motion. Nontender with no deformity. No lesions are appreciated. Cardiovascular: Regular rate and rhythm with a normal S1 and S2. No gallops, murmurs, or rubs. Normal PMI, no JVD. No pulse deficits. Respiratory: Lungs have equal breath sounds bilaterally, clear to auscultation and percussion. No rales, rhonchi or wheezes noted. No increased work of breathing, no retractions or nasal flaring. Abdomen/GI: Soft, non-tender, with normal bowel sounds. No distension or tympany. No guarding or rebound. No evidence of tenderness throughout. Back: No spinal tenderness. No costovertebral tenderness. Full range of motion. Skin: Warm, dry with normal turgor. Normal color with no rashes, no lesions, and no evidence of cellulitis. Neuro: Awake and alert, GCS 15, oriented to person, place, time, and situation. Cranial nerves II-XII grossly intact. Motor strength 5/5 in all extremities. Sensory grossly intact. Cerebellar exam normal. Normal gait. Psych: Awake, alert, with orientation to person, place and time. Behavior, mood, and affect are within normal limits. 21:27 Musculoskeletal/extremity: Extremities: noted in the right elbow: decreased ROM, pain, tenderness, DVT Exam: no swelling, negative Homans' sign noted on exam, no appreciated bluish discoloration, no erythema, no increased warmth, pain, tenderness, that is marked. Vital Signs: 21:19 BP 142 / 84; Pulse 70; Resp 18; Temp 97.7; Pulse Ox 98% on R/A; Weight 136.08 kg (R); ak1 Height 5 ft. 9 in. (175.26 cm) (R); Pain 6/10; 22:23 BP 136 / 81; Pulse 76; Resp 17; Temp 98; Pulse Ox 98% on R/A; rv 21:19 Body Mass Index 44.30 (136.08 kg, 175.26 cm) ak1 MDM: 21:[address] [facility] 21:27 Data reviewed: vital signs, nurses notes, radiologic studies, plain films. [facility] 03/19 21:27 Order name: Elbow Right [address] [facility] 03/19 21:27 Order name: Vicente wrap-joint; Complete Time: 22:09 [facility] 03/19 21:27 Order name: Ice pack; Complete Time: 22:10 [facility] Administered Medications: 21:43 Drug: Motrin 800 mg Route: PO; rv 22:21 Follow up: Response: No adverse reaction; Pain is decreased rv 21:43 Drug: [place] 10 mg-325 mg 1 tabs Route: PO; rv 22:21 Follow up: Response: No adverse reaction; Pain is decreased rv Disposition: 03/19/19 21:35 Discharged to Home. Impression: Lateral epicondylitis, right elbow. - Condition is Stable. - Discharge Instructions: Elastic Bandage and RICE, Tennis Elbow, RICE for Routine Care of Injuries, Tendinitis, RICE for Routine Care of Injuries, [id number]-ms-[id number], Tennis Elbow, [id number]-[id number], Tendinitis, [id number]-[id number]-[id number]. - Prescriptions for Ibuprofen 600 mg Oral Tablet - take 1 tablet by ORAL route every 6 hours As needed take with food; 28 tablet. Tylenol- Codeine #3 300-30 mg Oral Tablet - take 2 tablets by ORAL route every 6 hours As needed; 26 tablet. Medrol (Rock) 4 mg Oral Tablets, Dose Pack - take 1 tablet by ORAL route as directed - follow package instructions; 1 packet. - Medication Reconciliation Form, Thank You Letter, Antibiotic Education, Prescription Opioid Use, Work release form form. - Follow up: Private Physician; When: 2 - 3 days; Reason: Recheck today's complaints, Continuance of care, Re-evaluation by your physician. Follow up: Zia Valverde MD; When: 2 - 3 days; Reason: Recheck today's complaints, Continuance of care, Re-evaluation by your physician. - Problem is new. - Symptoms have improved. Signatures: Dispatcher [employer] EDMS Gareth Erwin MD MD cha Krenek, Amber, RN RN ak1 Kush Zhao RN RN rv Corrections: (The following items were deleted from the chart) 22:24 21:35 03/19/2019 21:35 Discharged to Home. Impression: Lateral epicondylitis, right rv elbow. Condition is Stable. Forms are Medication Reconciliation Form, Thank You Letter, Antibiotic Education, Prescription Opioid Use. Follow up: Private Physician; When: 2 - 3 days; Reason: Recheck today's complaints, Continuance of care, Re-evaluation by your physician. Follow up: Zia Valverde; When: 2 - 3 days; Reason: Recheck today's complaints, Continuance of care, Re-evaluation by your physician. Problem is new. Symptoms have improved. omid
--- NOTE | 2019-03-19 21:36 | ER ---
Nurse's Notes [facility] Name: Willi Foley Age: 44 yrs Sex: Male : 1975 Arrival Date: 03/19/2019 Time: 21:03 Bed 16 Private MD: Diagnosis: Lateral epicondylitis, right elbow Presentation: 03/19 21:20 Presenting complaint: Patient states: right elbow pain X2 months intermittent. pt ak1 stated 2 months ago he bumped his elbow at work and now has intermittent pain and weakness to the right elbow. pt with full ROM to right elbow. Transition of care: patient was not received from another setting of care. Onset of symptoms is unknown. Risk Assessment: Do you want to hurt yourself or someone else? Patient reports no desire to harm self or others. Initial Sepsis Screen: Does the patient meet any 2 criteria? No. Patient's initial sepsis screen is negative. Does the patient have a suspected source of infection? No. Patient's initial sepsis screen is negative. Care prior to arrival: None. 21:20 Acuity: RESHMA 4 ak1 21:20 Method Of Arrival: Ambulatory ak1 Triage Assessment: 21:23 General: Appears in no apparent distress. Behavior is calm, cooperative, appropriate ak1 for age. Pain: Complains of pain in right elbow. Historical: - Allergies: 21:23 No Known Allergies; ak1 - Home Meds: 21:23 None [Active]; ak1 - PMHx: 21:23 None; ak1 - PSHx: 21:23 TESTICLE REMOVAL; ak1 - Immunization history:: Adult Immunizations unknown. - Social history:: Smoking status: Patient/guardian denies using tobacco. - Ebola Screening: : No symptoms or risks identified at this time. - Family history:: not pertinent. Screenin:23 Abuse screen: Denies threats or abuse. Denies injuries from another. Nutritional ak1 screening: No deficits noted. Tuberculosis screening: No symptoms or risk factors identified. Fall Risk None identified. Assessment: 22:08 General: Appears in no apparent distress. uncomfortable, Behavior is calm, cooperative. rv Pain: Complains of pain in right elbow. Neuro: Level of Consciousness is awake, alert, obeys commands, Oriented to person, place, time, situation. Cardiovascular: Patient's skin is warm and dry. Respiratory: Airway is patent. GI: No signs and/or symptoms were reported involving the gastrointestinal system. : No signs and/or symptoms were reported regarding the genitourinary system. EENT: No signs and/or symptoms were reported regarding the EENT system. Derm: Skin is intact. Musculoskeletal: Reports pain in right elbow. Vital Signs: 21:19 BP 142 / 84; Pulse 70; Resp 18; Temp 97.7; Pulse Ox 98% on R/A; Weight 136.08 kg (R); ak1 Height 5 ft. 9 in. (175.26 cm) (R); Pain 6/10; 22:23 BP 136 / 81; Pulse 76; Resp 17; Temp 98; Pulse Ox 98% on R/A; rv 21:19 Body Mass Index 44.30 (136.08 kg, 175.26 cm) ak1 ED Course: 21:03 Patient arrived in ED. es 21:19 Arm band placed on Patient placed in an exam room, on a stretcher, Patient notified of ak1 wait time. 21:21 Gareth Erwin MD is Attending Physician. omid 21:23 Triage completed. ak1 21:23 Patient has correct armband on for positive identification. Bed in low position. Call ak1 light in reach. Side rails up X 1. Adult w/ patient. 21:35 Zia Valverde MD is Referral Physician. omid 21:38 Kush Zhao RN is Primary Nurse. rv 22:16 Elbow Right 3 View XRAY In Process Unspecified. EDMS 22:22 No provider procedures requiring assistance completed. Patient did not have IV access rv during this emergency room visit. Vicente wrap to right elbow. Administered Medications: 21:43 Drug: Motrin 800 mg Route: PO; rv 22:21 Follow up: Response: No adverse reaction; Pain is decreased rv 21:43 Drug: [place] 10 mg-325 mg 1 tabs Route: PO; rv 22:21 Follow up: Response: No adverse reaction; Pain is decreased rv Outcome: 21:35 Discharge ordered by . omid 22:23 Discharged to home ambulatory, with family. rv 22:23 Condition: good 22:23 Discharge instructions given to patient, Instructed on discharge instructions, follow up and referral plans. medication usage, Demonstrated understanding of instructions, follow-up care, medications, Prescriptions given X 3. 22:24 Patient left the ED. rv Signatures: Dispatcher [employer] Gareth Garg MD MD cha Salyer, Edna es Krenek, Amber RN RN ak1 Kush Zhao, EDENILSON RN rv
[2019-03-19] MEDS ORDERED: IBUPROFEN 400 MG TAB ONE (21:58)
[2019-03-19] MEDS ORDERED: HYDROCODONE/APAP 10/325 TAB ONE (21:58)
--- NOTE | 2019-03-19 22:52 | RAD REPORT ---
EXAM DESCRIPTION: RAD - Elbow Right 3 View - 03/19/2019 10:14 pm CLINICAL HISTORY: PAIN Pain and swelling to elbow. COMPARISON: No comparisons FINDINGS: No acute fracture or dislocation seen. Tiny olecranon spur.
== END 2019-03-19 22:24 | disposition home or self-care (01) ==
LOC: ER 20:56
DX: M77.11 Lateral epicondylitis, right elbow (principal)
CPT/HCPCS: 99284

== ENCOUNTER 2023-07-03 13:58 | Emergency (ER) | payer OTHER ==
--- OUTSIDE RECORDS SUMMARY | 2023-07-03 14:00 | XMS REPORT | Continuity of Care Document ---
:1975 Author Organization [facility] t Address [address] [place] [address] Care Team Providers Name Role Phone ROLAND GERMAN Attending Clinician Unavailable MINNIE NICOLAS Attending Clinician Unavailable IHDE_G Attending Clinician Unavailable Robbi Bullock Attending Clinician Unavailable IHDE_G Admitting Clinician Unavailable Robbi Bullock Admitting Clinician Unavailable Problems This patient has no known problems. Allergies, Adverse Reactions, Alerts This patient has no known allergies or adverse reactions. Medications This patient has no known medications. Procedures This patient has no known procedures. Encounters Start End Encounter Admission Attending Care Care Encounter Source Date/Time Date/Time Type Type Clinicians Facility Department ID 2022-11-29 2022-11-29 Emergency ER ALEXIS GERMAN [facility] [id number] [place] 17:22:00 20:32:00 ROLAND -[id number] [facility] 2022-11-29 2022-11-29 emergency [id number] 17:22:00 20:32:00 [id number] 2022-09-29 2022-09-29 emergency [id number] 16:30:00 18:00:00 [id number] 2022-09-29 2022-09-29 Emergency ER [place], [facility] [id number] [place] 16:30:00 18:00:00 ROLAND -[id number] [facility] 2022-08-19 2022-08-19 [facility] [id number] [place] 10:57:00 10:57:00 -[id number] [facility] 2022-07-16 2022-07-[address] [facility] [id number] [place] 08:51:00 08:51:00 -[id number] [facility] 2021-10-21 2021-10-21 Outpatient IHDE_G MMG [id number] [place] 02:58:00 02:58:00 [id number] 2020-08-17 2020-08-19 Inpatient ER Ara, [facility] MED [id number] [place] 20:31:00 13:30:00 [facility] -[id number] [facility] Results This patient has no known results.
--- NOTE | 2023-07-03 14:26 | ER ---
Nurse's Notes [facility] Name: Willi Foley Age: 48 yrs Sex: Male : 1975 Arrival Date: 07/03/2023 Time: 13:58 Bed 10 Private MD: Diagnosis: Cutaneous abscess of the posterior scalp Presentation: 07/03 14:05 Chief complaint: Abscess on back of head x 1 week. Coronavirus screen: At this time, hb the client does not indicate any symptoms associated with coronavirus-19. Ebola Screen: No symptoms or risks identified at this time. Initial Sepsis Screen: Does the patient meet any 2 criteria? No. Patient's initial sepsis screen is negative. Does the patient have a suspected source of infection? No. Patient's initial sepsis screen is negative. Risk Assessment: Do you want to hurt yourself or someone else? Patient reports no desire to harm self or others. Onset of symptoms was June 27, 2023. 14:05 Method Of Arrival: Ambulatory hb 14:05 Acuity: RESHMA 4 hb Triage Assessment: 14:06 General: Appears in no apparent distress. Behavior is calm, cooperative. Pain: Pain hb currently is 9 out of 10 on a pain scale. EENT: No signs and/or symptoms were reported regarding the EENT system. Neuro: Level of Consciousness is awake, alert, obeys commands, Oriented to person, place, time, situation. Cardiovascular: Patient's skin is warm and dry. Respiratory: Respiratory effort is even, unlabored, Respiratory pattern is regular, symmetrical. GI: No signs and/or symptoms were reported involving the gastrointestinal system. : No signs and/or symptoms were reported regarding the genitourinary system. Derm: Skin is pink, warm \T\ dry. Abscess located on occipital area is half dollar sized. Musculoskeletal: No signs and/or symptoms reported regarding the musculoskeletal system. Historical: - Allergies: 14:06 No Known Allergies; hb - Home Meds: 14:06 Metformin Oral [Active]; Ozempic subcutaneous [Active]; hb - PMHx: 14:06 DM2; hb - PSHx: 14:06 None; hb - Immunization history:: Adult Immunizations up to date. - Social history:: Smoking status: Patient denies any tobacco usage or history of. Screenin:08 [facility] ED Fall Risk Assessment (Adult) Score/Fall Risk Level 0 - 2 = Low Risk hb Oriented to surroundings, Maintained a safe environment. Abuse screen: Denies threats or abuse. Denies injuries from another. Nutritional screening: No deficits noted. Tuberculosis screening: No symptoms or risk factors identified. Assessment: 14:08 General: See triage assessment.. hb Vital Signs: 14:05 BP 149 / 101; Pulse 89; Resp 16; Temp 98.3; Pulse Ox 98% on R/A; Weight 108.86 kg; hb Height 5 ft. 9 in. ; Pain 9/10; 14:05 Body Mass Index 35.44 (108.86 kg, 175.26 cm) hb 14:05 Pain Scale: Adult hb ED Course: 13:59 Patient arrived in ED. 4 14:06 Triage completed. 14:06 Arm band placed on. 14:08 Tasneem Harris FNP [facility] 14:08 Abraham Odonnell MD is Attending Physician. [facility] 14:08 Patient has correct armband on for positive identification. Provided Education on: . 14:18 Sudheer Whelan, RN is Primary Nurse. [facility] 14:31 No provider procedures requiring assistance completed. Patient did not have IV access [facility] during this emergency room visit. Administered Medications: 14:25 Not Given (not available): [id number] mg IM once [facility] 14:31 Drug: Doxycycline PO 100 mg PO once Route: PO; 7 14:31 Follow up: Response: Medication administered at discharge. [facility] Medication: 14:08 VIS not applicable for this client. Outcome: 14:26 Discharge ordered by . [facility] 14:31 Discharged to home ambulatory, 7 14:31 Condition: stable 14:31 Discharge instructions given to patient, Instructed on discharge instructions, follow up and referral plans. medication usage, Demonstrated understanding of instructions, follow-up care, medications, Prescriptions given X 2, 14:32 Patient left the ED. [facility] Signatures: Vicki Acevedo RN RN Sobia Petty 4 Sudheer Whelan RN RN [facility] Tasneem Harris FNP [place] [id number]
--- NOTE | 2023-07-03 14:26 | EDPHYS ---
Physician Documentation [facility] Name: Willi Foley Age: 48 yrs Sex: Male : 1975 Arrival Date: 07/03/2023 Time: 13:58 Bed 10 Private MD: ED Physician Abraham Odonnell HPI: 07/03 14:07 This 48 yrs old Black Male presents to ER via Ambulatory with complaints of Abscess. [facility] 14:07 The patient presents with an abscess of the occipital area. Description: The affected [facility] area is small, localized. Onset: The symptoms/episode began/occurred 1 week(s) ago. Possible cause(s): unknown. Associated signs and symptoms: Pertinent negatives: discharge, drainage, fever. Historical: - Allergies: 14:06 No Known Allergies; hb - Home Meds: 14:06 Metformin Oral [Active]; Ozempic subcutaneous [Active]; hb - PMHx: 14:06 DM2; hb - PSHx: 14:06 None; hb - Immunization history:: Adult Immunizations up to date. - Social history:: Smoking status: Patient denies any tobacco usage or history of. ROS: 14:07 Constitutional: Negative for fever, chills, and weight loss, Cardiovascular: Negative jh for chest pain, palpitations, and edema, Respiratory: Negative for shortness of breath, cough, wheezing, and pleuritic chest pain, Abdomen/GI: Negative for abdominal pain, nausea, vomiting, diarrhea, and constipation, Back: Negative for injury and pain, Neuro: Negative for headache, weakness, numbness, tingling, and seizure, 14:07 Skin: Positive for abscess, of the occipital area, 14:07 All other systems are negative, Exam: 14:07 Constitutional: This is a well developed, well nourished patient who is awake, alert, jh7 and in no acute distress. Head/Face: Normocephalic, atraumatic. Neck: Trachea midline, no thyromegaly or masses palpated, and no cervical lymphadenopathy. Supple, full range of motion without nuchal rigidity, or vertebral point tenderness. No Meningismus. Cardiovascular: Regular rate and rhythm with a normal S1 and S2. No gallops, murmurs, or rubs. Normal PMI, no JVD. No pulse deficits. Respiratory: Lungs have equal breath sounds bilaterally, clear to auscultation and percussion. No rales, rhonchi or wheezes noted. No increased work of breathing, no retractions or nasal flaring. Back: No spinal tenderness. No costovertebral tenderness. Full range of motion. MS/ Extremity: Pulses equal, no cyanosis. Neurovascular intact. Full, normal range of motion. Neuro: Awake and alert, GCS 15, oriented to person, place, time, and situation. Normal gait. 14:07 Skin: abscess, that is small, of the occipital area, with induration, Small erythematous, tender, indurated area on the posterior scalp with no fluctuance or drainage present., Vital Signs: 14:05 BP 149 / 101; Pulse 89; Resp 16; Temp 98.3; Pulse Ox 98% on R/A; Weight 108.86 kg; hb Height 5 ft. 9 in. ; Pain 9/10; 14:05 Body Mass Index 35.44 (108.86 kg, 175.26 cm) hb 14:05 Pain Scale: Adult hb MDM: 14:08 Patient medically screened. [facility] 14:35 Differential diagnosis: abscess. Data reviewed: vital signs, nurses notes. I considered [facility] the following discharge prescriptions or medication management in the emergency department Medications were administered in the Emergency Department. See MAR. Care significantly affected by the following chronic conditions: Diabetes. Counseling: I had a detailed discussion with the patient and/or guardian regarding the historical points, exam findings, and any diagnostic results supporting the discharge/admit diagnosis, to return to the emergency department if symptoms worsen or persist or if there are any questions or concerns that arise at home. Special discussion: Informed the patient that an I\T\D is not indicated at this time due to no fluctuance. Advised return to the ER if abscess grows, redness spreads, or fever develops.. Administered Medications: 14:25 Not Given (not available): [id number] mg IM once 7 14:31 Drug: Doxycycline PO 100 mg PO once Route: PO; 7 14:31 Follow up: Response: Medication administered at discharge. 7 Disposition: 07/04 09:05 Co-signature as Attending Physician, Abraham Odonnell MD I reviewed the patient's care rn provided by the Advanced Practice Provider and agree with the diagnosis and treatment plan. Disposition Summary: 07/03/23 14:26 Discharge Ordered Notes: Location: Home [facility] Problem: new [facility] Symptoms: are unchanged [facility] Condition: Stable [facility] Diagnosis - Cutaneous abscess of the posterior scalp [facility] Followup: [facility] - With: Private Physician - When: 2 - 3 days - Reason: Recheck today's complaints Discharge Instructions: - Discharge Summary Sheet hb - Skin Abscess [facility] Forms: - Work release form hb - Medication Reconciliation Form [facility] - Thank You Letter [facility] - Antibiotic Education [facility] - Patient Portal Instructions [facility] - Leadership Thank You Letter [facility] Prescriptions: - mupirocin 2 % Topical ointment - apply 1 application TOPICAL route 3 times per day for 7 days; 22 gram; Refills: jh7 0, Product Selection Permitted - Doxycycline Hyclate 100 mg Oral tablet - take 1 tablet ORAL route every 12 hours for 7 days; 14 tablet; Refills: 0, jh7 Product Selection Permitted Signatures: Abraham Odonnell MD MD rn Baxter, Heather, RN RN hb Leal, Jahala, RN RN sarah7 Tasneem Harris FNP [place] [phone]
[2023-07-03] MEDS ORDERED: DOXYCYCLINE 100 MG CAP PO ONE (14:39)
[2023-07-03 14:43] VITALS: BP 149/101; TEMP 98.3; O2SAT 98
== END 2023-07-03 14:32 | disposition home or self-care (01) ==
LOC: ER 13:58
DX: L02.811 Cutaneous abscess of head [any part, except face] (principal)
CPT/HCPCS: 99283

== ENCOUNTER 2023-07-19 19:03 | Emergency (ER) | payer OTHER ==
--- OUTSIDE RECORDS SUMMARY | 2023-07-19 19:05 | XMS REPORT | Continuity of Care Document ---
:1975 Author Organization [facility] t Address [address] [place] [address] Care Team Providers Name Role Phone ROLAND [...] ID 2022-11-29 2022-11-29 Emergency ER ALEXIS GERMAN [facility] [id number] [place] 17:22:00 20:32:00 ROLAND -[id number] [facility] 2022-11-29 2022-11-29 emergency [id number] 17:22:00 20:32:00 [id number] 2022-09-29 2022-09-29 emergency [id number] 16:30:00 18:00:00 [id number] 2022-09-29 2022-09-29 Emergency ER GERMAN, [facility] [id number] [place] 16:30:00 18:00:00 ROLAND -[id number] [facility] 2022-08-19 2022-08-19 Outpatient [facility] [id number] [place] 10:57:00 10:57:00 [id number] [facility] 2022-07-16 2022-07-16 Outpatient [facility] [id number] [place] 08:51:00 08:51:00 [id number] [facility] 2021-10-21 2021-10-21 Outpatient [id number] [place] 02:58:00 02:58:00 [id number] 2020-08-17 2020-08-19 Inpatient ER [place], [facility] [id number] [place] 20:31:00 13:30:00 [facility] -[id number] [facility] Results This patient has no known results.
--- NOTE | 2023-07-19 19:25 | EDPHYS ---
Physician Documentation [facility] Name: Willi Foley Age: 48 yrs Sex: Male : 1975 Arrival Date: 07/19/2023 Time: 19:03 Bed 14 Private MD: ED Physician Tyshawn Duarte HPI: 07/19 19:27 This 48 yrs old Black Male presents to ER via Ambulatory with complaints of Back Pain. ec2 19:27 Patient arrives today due to concern for right low back pain. He states that he has ec2 been having back pain for years, denies any acute exacerbating factors, states that he did not fall or trip or injure himself, denies any MVC's or back strain. Reports no urinary complaints, denies any abdominal complaints. States that the pain radiates into the leg.. Historical: - Allergies: 19:13 No Known Allergies; vc1 - PMHx: 19:13 DM2; vc1 - PSHx: 19:13 None; vc1 - Immunization history:: Flu vaccine is up to date. - Social history:: Smoking status: Patient denies any tobacco usage or history of. ROS: 19:27 Constitutional: as per hpi ec2 Exam: 19:27 Constitutional: GEN: NAD Head: atraumatic Eyes: EOMI Ears: External ears are ec2 normal. CV: regular rate LUNGS: no respiratory distress ABD: non-distended SKIN: no evidence of rashes MSK: Right lateral low back with TTP, no deformities, no crepitus appreciated, bilateral lower extremities with good range of motion. No C/T/L-spine TTP NEURO: moves all extremities equally Vital Signs: 19:07 BP 146 / 105; Pulse 91; Resp 18; Temp 98.3; Pulse Ox 98% ; Weight 122.47 kg; Height 5 vc1 ft. 9 in. ; Pain 10/10; 19:07 Body Mass Index 39.87 (122.47 kg, 175.26 cm) vc1 19:07 Pain Scale: Adult vc1 MDM: 19:25 Patient medically screened. ec2 19:27 Data reviewed: vital signs. ED course: Patient arrives today for evaluation of right ec2 lateral low back pain. Examination remarkable for well-appearing nontoxic individual with reproducible right low back TTP. Suspect MSK pain given the symptoms as well as the chronicity of the symptoms. Instructed him on [id number]-[id number] medications and will prescribe methocarbamol as well as prednisone, possible sciatica versus muscular strain. Low suspicion for renal process, with suspicion for UTI/pyonephritis.. Administered Medications: 19:30 Drug: Methocarbamol PO 750 mg PO once Route: PO; la4 19:30 Drug: Ketorolac IM 60 mg IM once Route: IM; Site: left deltoid; la4 19:30 Drug: Lidoderm Topical Patch 5 % (700 mg/patch) 1 patches Topical once; leave on for 12 la4 hours; cover most painful area; may cut into smaller pieces Route: Topical; Site: affected area; 19:30 Drug: Acetaminophen PO 1000 mg PO once Route: PO; la4 19:30 Drug: predniSONE PO 40 mg PO once Route: PO; la4 Disposition Summary: 07/19/23 19:25 Discharge Ordered Notes: Location: Home ec2 Condition: Stable ec2 Diagnosis - Low back pain ec2 Followup: ec2 - With: Private Physician - When: - Reason: Recheck today's complaints Discharge Instructions: - Discharge Summary Sheet ec2 - Acute Back Pain, Adult ec2 Forms: - Medication Reconciliation Form ec2 - Thank You Letter ec2 - Antibiotic Education ec2 - Prescription Opioid Use ec2 - Patient Portal Instructions ec2 - Leadership Thank You Letter ec2 Prescriptions: - Prednisone 20 mg Oral Tablet - take 2 tablets ORAL route once daily for 5 days; 10 tablet; Refills: 0, Product ec2 Selection Permitted - methocarbamol 500 mg Oral tablet - take 3 tablets ORAL route 4 times per day for 2 days; 30 tablet; Refills: 0, ec2 Product Selection Permitted Signatures: Pauline Ansari RN RN vc1 Tyshawn Duarte MD MD ec2 Aurelio Lozano RN RN la4
--- NOTE | 2023-07-19 19:25 | ER ---
Nurse's Notes [facility] Name: Willi Foley Age: 48 yrs Sex: Male : 1975 Arrival Date: 07/19/2023 Time: 19:03 Bed 14 Private MD: Diagnosis: Low back pain Presentation: 07/19 19:07 Chief complaint: Patient states: Last week my back started hurting and now I can barely vc1 move. I couldn't get out of bed. Coronavirus screen: Vaccine status: Patient reports being unvaccinated. Client denies travel out of the [place] in the last 14 days. At this time, the client does not indicate any symptoms associated with coronavirus-19. Ebola Screen: Patient negative for fever greater than or equal to 101.5 degrees Fahrenheit, and additional compatible Ebola Virus Disease symptoms Patient denies exposure to infectious person. Patient denies travel to an Ebola-affected area in the 21 days before illness onset. No symptoms or risks identified at this time. Initial Sepsis Screen: Does the patient meet any 2 criteria? No. Patient's initial sepsis screen is negative. Does the patient have a suspected source of infection? No. Patient's initial sepsis screen is negative. Risk Assessment: Do you want to hurt yourself or someone else? Patient reports no desire to harm self or others. Onset of symptoms is unknown. 19:07 Method Of Arrival: Ambulatory vc1 19:07 Acuity: RESHMA 3 vc1 Triage Assessment: 19:17 General: Appears in no apparent distress. uncomfortable, Behavior is calm, cooperative, vc1 appropriate for age. Pain: Complains of pain in right low back Pain radiates to right femoral area, right inguinal area, right iliac crest and right leg Pain currently is 10 out of 10 on a pain scale. Quality of pain is described as radiating, sharp. EENT: No deficits noted. No signs and/or symptoms were reported regarding the EENT system. Neuro: Level of Consciousness is awake, alert, obeys commands, Oriented to person, place, time, situation, Appropriate for age. Cardiovascular: No deficits noted. Respiratory: Airway is patent Respiratory effort is even, unlabored, Respiratory pattern is regular, symmetrical. GI: No deficits noted. No signs and/or symptoms were reported involving the gastrointestinal system. : No deficits noted. No signs and/or symptoms were reported regarding the genitourinary system. Derm: No deficits noted. No signs and/or symptoms reported regarding the dermatologic system. Musculoskeletal: Circulation, motion, and sensation intact. Range of motion: intact in all extremities, Reports pain in right low back and right leg. Historical: - Allergies: 19:13 No Known Allergies; vc1 - PMHx: 19:13 DM2; vc1 - PSHx: 19:13 None; vc1 - Immunization history:: Flu vaccine is up to date. - Social history:: Smoking status: Patient denies any tobacco usage or history of. Screenin:18 [facility] ED Fall Risk Assessment (Adult) History of falling in the last 3 months, vc1 including since admission No falls in past 3 months (0 pts) Confusion or Disorientation No (0 pts) Intoxicated or Sedated No (0 pts) Impaired Gait Yes (1 pt) Mobility Assist Device Used No (0 pt) Altered Elimination No (0 pt) Score/Fall Risk Level 0 - 2 = Low Risk Oriented to surroundings, Maintained a safe environment, Educated pt \T\ family on fall prevention, incl call for assistance when getting out of bed. Abuse screen: Denies threats or abuse. Nutritional screening: No deficits noted. Tuberculosis screening: No symptoms or risk factors identified. Assessment: 19:30 Reassessment: Patient appears in no apparent distress at this time. la4 19:30 Neuro: No deficits noted. West Agitation-Sedation Scale (RASS): 0 - Alert and Calm la4 Level of Consciousness is awake, alert, obeys commands, Oriented to person, place, time, situation, Appropriate for age. Cardiovascular: No deficits noted. Heart tones S1 S2 Capillary refill < 3 seconds is brisk Pulses are all present. Edema is absent. Respiratory: No deficits noted. Airway is patent Trachea midline Respiratory effort is even, unlabored. Musculoskeletal: Circulation, motion, and sensation intact. Capillary refill < 3 seconds, is brisk, Range of motion: intact in all extremities, Reports pain in right low back. Vital Signs: 19:07 BP 146 / 105; Pulse 91; Resp 18; Temp 98.3; Pulse Ox 98% ; Weight 122.47 kg; Height 5 vc1 ft. 9 in. ; Pain 10/10; 19:07 Body Mass Index 39.87 (122.47 kg, 175.26 cm) vc1 19:07 Pain Scale: Adult vc1 ED Course: 19:05 Patient arrived in ED. mr 19:07 Tyshawn Duarte MD is Attending Physician. ec2 19:13 Triage completed. vc1 19:14 Arm band placed on right wrist. vc1 19:19 Patient has correct armband on for positive identification. Bed in low position. vc1 19:24 Aurelio Lozano, RN is Primary Nurse. la4 19:30 Call light in reach. Side rails up X2. Provided Education on: plan of care. la4 19:32 No provider procedures requiring assistance completed. Patient did not have IV access vc1 during this emergency room visit. Administered Medications: 19:30 Drug: Methocarbamol PO 750 mg PO once Route: PO; la4 19:30 Drug: Ketorolac IM 60 mg IM once Route: IM; Site: left deltoid; la4 19:30 Drug: Lidoderm Topical Patch 5 % (700 mg/patch) 1 patches Topical once; leave on for 12 la4 hours; cover most painful area; may cut into smaller pieces Route: Topical; Site: affected area; 19:30 Drug: Acetaminophen PO 1000 mg PO once Route: PO; la4 19:30 Drug: predniSONE PO 40 mg PO once Route: PO; la4 Medication: 19:19 VIS not applicable for this client. vc1 Outcome: 19:25 Discharge ordered by . 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 medication usage, Demonstrated understanding of instructions, follow-up care, medications, Prescriptions given X 3, 19:33 Patient left the ED. vc1 Signatures: Irma Escoto, Reg Reg mr Pauline Ansari, RN RN vc1 Tyshawn Duarte MD MD ec2 Aurelio Lozano RN RN la4
[2023-07-19 19:38] VITALS: BP 146/105; TEMP 98.3; O2SAT 98
[2023-07-19] MEDS ORDERED: predniSONE 20 MG TAB ONE (19:54)
[2023-07-19] MEDS ORDERED: ACETAMINOPHEN 500 MG TAB ONE (19:54)
[2023-07-19] MEDS ORDERED: KETOROLAC 30 MG/ML INJ ONE (19:54)
[2023-07-19] MEDS ORDERED: methocarbamoL 750 MG TAB ONE (19:54)
[2023-07-19] MEDS ORDERED: LIDOCAINE 4% PATCH ONE (19:55)
== END 2023-07-19 19:33 | disposition home or self-care (01) ==
LOC: ER 19:03
DX: M54.50 Low back pain, unspecified (principal); E11.9 Type 2 diabetes mellitus without complications
CPT/HCPCS: 96372; 99284; J7512; J2001

== ENCOUNTER 2024-08-14 17:30 | Emergency (ER) | payer OTHER ==
--- OUTSIDE RECORDS SUMMARY | 2024-08-14 17:33 | XMS REPORT | Continuity of Care Document ---
Author Name Unknown Address [address] [facility] [address] [place] [address] [facility] thconnect Address [address] [facility] [address] [place] [address] Care Team Providers Care Chrome Plater Name Role Phone SHEREE PIERRE Primary Care Physician EDILIA CASTILLO Attending Clinician Unavailable TOBI NEWBY Attending Clinician Unavailab THANH Salazar Attending Clinician Unavailab KATIE Alvarado Attending Clinician Unavailable ROLAND GERMAN Attending Clinician Unavailab MINNIE Tony Attending Clinician Unavailable IHDE_G Attending Clinician Unavailable ROBBI LISA Attending Clinician Unavail able LINCOLN, OLADIPO Admitting Clinician Unavailable IHDE_G Admitting Clinician Unavailable ROBBI LISA Admitting Clinician Unavail able Problems Condition Name Condition Details Condition Category Status Onset Date Resolution Date Last Treatment Date Treating Clinician Comments Source Acute sinusitis Problem [facility] Encounter for counseling regarding advance [facility] Blurring of visual image [facility] En[facility] counseling [facility] Diabetes mellitus [facility] Dyspnea [facility] Influenza- like symptoms [facility] Hypertensi on Problem [facility] Hyperlipid emia [facility] Hyperosmol ar hyperglyce varun state (HHS) Problem [facility] Rhinitis Problem [facility] New onset type 2 diabetes mellitus Problem [facility] Excessive thirst [facility] Polyuria Problem [facility] Upper respirator y tract infection Problem [facility] Worries [facility] Social History Social Habit Start Date Stop Date Quantity Comments Source History of tobacco use [facility] Smoking Status Start Date Stop Date Source Never smoked tobacco (finding) [facility] Medications Ordered Medication Name Filled Medication Name Start Date Stop Date Current Medication? Ordering Clinician Indication Dosage Frequency Signature (SIG) Comments Components Source Azithromyci n (Zithromax Z-Rock *) 250 Mg TAB Azithromyci n (Zithromax Z-Rock *) 250 Mg TAB 03-30 09:40: 00 Yes 1 [facility] Albuterol (Ventolin Hfa *) 90 Mcg/Act INH Albuterol (Ventolin Hfa *) 90 Mcg/Act INH 2022-08 11:45: 00 Yes 2 [facility] Benzonatate (Tessalon *) 100 Mg CAP Benzonatate (Tessalon *) 100 Mg CAP 2022-08 11:45: 00 Yes 100 [facility] Atorvastati n Calcium (Lipitor *) 10 Mg TAB Atorvastati n Calcium (Lipitor *) 10 Mg TAB 2022-08 17:27: 00 Yes 1 [facility] Gabapentin (Neurontin *) 400 Mg CAP Gabapentin (Neurontin *) 400 Mg CAP 2022-08 17:27: 00 Yes 1 [facility] Metformin Hcl (Metformin Hydrochlori de) 1,000 Mg TAB Metformin Hcl (Metformin Hydrochlori de) 1,000 Mg TAB 2022-08 17:27: 00 Yes 1 [facility] Methocarbam ol (Methocarba mol 500 Mg) 500 Mg TAB Methocarbam ol (Methocarba mol 500 Mg) 500 Mg TAB 2022-08 17:27: 00 Yes [facility] Tramadol Hcl (Tramadol Hydrochlori de) 50 Mg TAB Tramadol Hcl (Tramadol Hydrochlori de) 50 Mg TAB 2022-08 17:27: 00 Yes 1 [facility] Amoxicillin /Clavulanat e Potassium (Augmentin *) 875 Mg TAB Amoxicillin /Clavulanat e Potassium (Augmentin *) 875 Mg TAB 11-29 19:17: 00 08-07 11:43 :00 No 1 [facility] Prednisone (Prednisone *) 10 Mg TAB Prednisone (Prednisone *) 10 Mg TAB 11-29 19:17: 00 08-07 11:43 :00 No 10 [facility] Fluticasone Propionate (Nasal) (Flonase Allergy Relief) 50 Mcg/Act SPR Fluticasone Propionate (Nasal) (Flonase Allergy Relief) 50 Mcg/Act SPR 09-29 17:24: 00 08-07 11:43 :00 No 2 [facility] Insulin Lispro 70/30 (Humalog 70/30) 100 Unit/Ml INJ Insulin Lispro 70/30 (Humalog 70/30) 100 Unit/Ml INJ 2019-08 09:22: 00 11-29 17:37 :00 No 30 [facility] Vital Signs Vital Name Observation Time Observation Value Comments S ource Height 2024-03-30 09:37:00 175.786423 cm [facility] Weight 2024-03-30 09:37:00 120.837927 kg [facility] BMI (Body Mass Index) 2024-03-30 09:37:00 39.1 kg/m2 [facility] Encounters Start Date/Time End Date/Time Encounter Type Admission Type Attending [facility] Care Facility Care Department Encounter ID Source 2023-08-12 08:00:00 Inpatient EL EDILIA CASTILLO [facility] [id number] [facility] 2024-08-11 19:02:00 2024-08-11 22:04:00 Emergency ER TOBI NEWBY [facility] [id number] [facility] 2024-03-30 09:28:00 2024-03-30 11:10:00 Emergency ER SAMAN BRYANTEN [facility] [id number] [facility] 2024-03-30 09:28:00 2024-03-30 11:10:00 Departed Emergency Room [facility] [id number] [facility] 2023-08-06 14:49:00 2023-08-07 13:00:00 Inpatient ER [facility] [id number] [facility] 2022-11-29 17:22:00 2022-11-29 20:32:00 emergency [id number] 2022-11-29 17:22:00 2022-11-29 20:32:00 Emergency ER ROLAND GERMAN [facility] [id number] [facility] 2022-09-29 16:30:00 2022-09-29 18:00:00 Emergency ER ROLAND GERMAN [facility] [id number] [facility] 2022-09-29 16:30:00 2022-09-29 18:00:00 emergency [id number] 2022-08-19 10:57:00 2022-08-19 10:57:00 Outpatient MINNIE BATES [facility] [id number] [facility] 2022-07-16 08:51:00 2022-07-16 08:51:00 Outpatient MINNIE BATES [facility] [id number] [facility] 2021-10-21 02:58:00 2021-10-21 02:58:00 Outpatient IHDE_G [facility] [id number] [facility] 2020-08-17 20:31:00 2020-08-19 13:30:00 Inpatient ER [facility]OBBI [facility] [id number] [facility]
[2024-08-14] MEDS ORDERED: HYDROCODONE/APAP 7.5/325 MG TAB ONE (18:11)
--- NOTE | 2024-08-14 18:38 | RAD REPORT ---
EXAM:Extremity Venous Uni Ltd HISTORY: Left leg pain TECHNIQUE: Sonographic evaluation left lower extremity performed.Grayscale, color and spectral analys is performed on all vessels COMPARISON: None. FINDINGS: Left common femoral, superficial femoral, greater saphenous, popliteal and posterior tibial veins are compressible and demonstrate augmentation. Doppler demonstrates good flow. IMPRESSION: No evidence of deep venous thrombosis involving the left lower extremity.
--- NOTE | 2024-08-14 19:29 | EDPHYS ---
Physician Documentation [facility] Name: Willi Foley Age: 49 yrs Sex: Male : 1975 Arrival Date: 08/14/2024 Time: 17:30 Bed DX3 Private MD: ED Physician Abraham Odonnell HPI: 08/14 19:25 This 49 yrs old Black Male presents to ER via Wheelchair with complaints of Groin Pain, kb Leg Pain. 19:25 Pt is a 49 year old male who presents for pain to left knee and thigh. Pt states he was kb sitting on the toilet about a week ago and had a sharp pain to groin when he stood up. States the pain traveled to left knee and has stayed there. States he thinks the pain is getting worse. Has been to his PCP in [place] multiple times for this. Was prescribed flexeril, then robaxin, then gabapentin and naproxen. Pt states he had xrays and also completed a course of steroids. Denies testicular or groin pain. states the pain is in and just above left knee. Historical: - Allergies: 17:44 No Known Allergies; tm6 - PMHx: 17:44 DM2; Hypercholesterolemia; tm6 - PSHx: 17:44 testicle removed; tm6 - Immunization history:: Flu vaccine is up to date. - Infectious Disease History:: Denies. - Social history:: Smoking status: Patient denies any tobacco usage or history of. ROS: 18:44 Constitutional: As per HPI kb Exam: 18:46 Constitutional: This is a well developed, well nourished patient who is awake, alert, kb and in no acute distress. Head/Face: Normocephalic, atraumatic. ENT: Moist Mucous membranes Cardiovascular: Regular rate Respiratory: Respirations even and unlabored. No increased work of breathing. Talking in full sentences Abdomen/GI: Soft, non-tender. No distention Skin: Warm, dry with normal turgor. Normal color. Neuro: Awake and alert, GCS 15, oriented to person, place, time, and situation. 19:24 Musculoskeletal/extremity: Extremities: grossly normal except: noted in the left kb quadriceps and left knee: pain, ROM: limited active range of motion due to pain, Circulation is intact in all extremities. Sensation intact. Weight bearing: can bear weight with assistance only, Vital Signs: 17:43 Temp 98.6(O); Weight 113.4 kg; Height 5 ft. 9 in. ; Pain 9/10; tm6 17:44 BP 119 / 85; Pulse 106; Resp 18; Pulse Ox 97% on R/A; MAP 95 mmHg; tm6 20:01 BP 118 / 84; Pulse 99; Resp 18; Pulse Ox 98% ; vc1 17:43 Body Mass Index 36.92 (113.40 kg, 175.26 cm) tm6 17:43 Pain Scale: Adult tm6 MDM: 17:34 Medical Screening Exam initiated kb 19:24 Differential diagnosis: dvt, strain, fracture. Data reviewed: vital signs, nurses kb notes. Test considered but Not performed: X-ray: xray considered but pt has had xrays done and were negative. Historians other than the Patient: Spouse/Significant Other: sig other. Counseling: I had a detailed discussion with the patient and/or guardian regarding the historical points, exam findings, and any diagnostic results supporting the discharge/admit diagnosis, radiology results, the need for outpatient follow up, a family practitioner, to return to the emergency department if symptoms worsen or persist or if there are any questions or concerns that arise at home. 08/14 17:51 Order name: US Extremity Venous Unilateral Ltd; Complete Time: 18:39 tm6 Administered Medications: 18:20 Drug: Hydrocodone-Acetaminophen PO (7.5 mg-325 mg) 1 tabs PO once Route: PO; tm6 20:03 Follow up: Response: Pain is decreased vc1 Disposition: 20:17 Co-signature as Attending Physician, Abraham Odonnell MD I reviewed the patient's care rn provided by the Advanced Practice Provider and agree with the diagnosis and treatment plan. Disposition Summary: 08/14/24 19:28 Discharge Ordered Notes: Location: Home kb Condition: Stable kb Diagnosis - Pain in left knee kb Followup: kb - With: Emergency Department - When: As needed - Reason: Worsening of condition Followup: kb - With: Private Physician - When: 2 - 3 days - Reason: Recheck today's complaints, Continuance of care, Re-evaluation by your physician Discharge Instructions: - Discharge Summary Sheet kb - Musculoskeletal Pain kb - Knee Sprain, Adult, [id number] kb Forms: - Medication Reconciliation Form kb - Antibiotic Education kb - Prescription Opioid Use kb - Patient Portal Instructions kb - Leadership Thank You Letter kb Signatures: Dispatcher [employer] EDYolei Ledbetter, ENROLLED AGENT-C ENROLLED AGENT-Abraham Navarro MD MD rn Masterson, Tawney, RN RN tm6 Pauline Ansari RN vc1 Corrections: (The following items were deleted from the chart) 19:24 18:46 Constitutional: This is a well developed, well nourished patient who is awake, kb alert, and in no acute distress. Head/Face: Normocephalic, atraumatic. ENT: Moist Mucous membranes kb
--- NOTE | 2024-08-14 19:29 | ER ---
Nurse's Notes [facility] Name: Willi Foley Age: 49 yrs Sex: Male : 1975 Arrival Date: 08/14/2024 Time: 17:30 Bed DX3 Private MD: Diagnosis: Pain in left knee Presentation: 08/14 17:44 Chief complaint: Patient states: about a week ago I was using the restroom and I felt a tm6 sharp pain in my groin going to my left leg. Coronavirus screen: Client denies travel out of the [place] in the last 14 days. Ebola Screen: Patient negative for fever greater than or equal to 101.5 degrees Fahrenheit, and additional compatible Ebola Virus Disease symptoms Patient denies exposure to infectious person. Patient denies travel to an Ebola-affected area in the 21 days before illness onset. No symptoms or risks identified at this time. Initial Sepsis Screen: Does the patient meet any 2 criteria? HR > 90 bpm. Does the patient have a suspected source of infection? No. Patient's initial sepsis screen is negative. Risk Assessment: Do you want to hurt yourself or someone else? Patient reports no desire to harm self or others. Onset of symptoms was August 07, 2024. 17:44 Method Of Arrival: Wheelchair tm6 17:44 Acuity: RESHMA 3 tm6 Triage Assessment: 17:44 General: Appears in no apparent distress. Behavior is calm, cooperative. Pain: tm6 Complains of pain in pelvis and left leg Pain currently is 7 out of 10 on a pain scale. Quality of pain is described as sharp. EENT: No signs and/or symptoms were reported regarding the EENT system. Neuro: Level of Consciousness is awake, alert, obeys commands, Oriented to person, place, time, situation. Cardiovascular: Patient's skin is warm and dry. Respiratory: Airway is patent Respiratory effort is even, unlabored, Respiratory pattern is regular, symmetrical. GI: No signs and/or symptoms were reported involving the gastrointestinal system. Abdomen is round. : No signs and/or symptoms were reported regarding the genitourinary system. Derm: No signs and/or symptoms reported regarding the dermatologic system. Musculoskeletal: Reports pain in left leg Pain is 7 out of 10 on a pain scale. Historical: - Allergies: 17:44 No Known Allergies; tm6 - PMHx: 17:44 DM2; Hypercholesterolemia; tm6 - PSHx: 17:44 testicle removed; tm6 - Immunization history:: Flu vaccine is up to date. - Infectious Disease History:: Denies. - Social history:: Smoking status: Patient denies any tobacco usage or history of. Screenin:[facility] ED Fall Risk Assessment (Adult) History of falling in the last 3 months, vc1 including since admission No falls in past 3 months (0 pts) Confusion or Disorientation No (0 pts) Intoxicated or Sedated No (0 pts) Impaired Gait No (0 pts) Mobility Assist Device Used No (0 pt) Altered Elimination No (0 pt) Score/Fall Risk Level 0 - 2 = Low Risk Oriented to surroundings, Maintained a safe environment, Educated pt \T\ family on fall prevention, incl call for assistance when getting out of bed. Abuse screen: Denies threats or abuse. Nutritional screening: No deficits noted. Tuberculosis screening: No symptoms or risk factors identified. Vital Signs: 17:43 Temp 98.6(O); Weight 113.4 kg; Height 5 ft. 9 in. ; Pain 9/10; tm6 17:44 BP 119 / 85; Pulse 106; Resp 18; Pulse Ox 97% on R/A; MAP 95 mmHg; tm6 20:01 BP 118 / 84; Pulse 99; Resp 18; Pulse Ox 98% ; vc1 17:43 Body Mass Index 36.92 (113.40 kg, 175.26 cm) tm6 17:43 Pain Scale: Adult tm6 ED Course: 17:32 Patient arrived in ED. im 17:34 Yolie Grossman FNP-C is PHCP. kb 17:34 Abraham Odonnell MD is Attending Physician. kb 17:44 Arm band placed on left wrist. tm6 17:45 Triage completed. tm6 18:15 US Extremity Venous Unilateral Ltd In Process Unspecified. EDMS 20:00 seen from wheelchair in diagnostic area. Provided Education on: pain control. vc1 20:00 No provider procedures requiring assistance completed. Patient did not have IV access vc1 during this emergency room visit. Administered Medications: 18:20 Drug: Hydrocodone-Acetaminophen PO (7.5 mg-325 mg) 1 tabs PO once Route: PO; tm6 20:03 Follow up: Response: Pain is decreased vc1 Medication: 20:01 VIS not applicable for this client. vc1 Outcome: 19:28 Discharge ordered by MD. corrales 20:00 Discharged to home via wheelchair, with significant other, vc1 20:00 Condition: good 20:00 Discharge instructions given to patient, Instructed on discharge instructions, follow up and referral plans. Demonstrated understanding of instructions, follow-up care, 20:04 Patient left the ED. vc1 Signatures: Dispatcher [employer] EDYolie Ledbetter, RENEEC TERRY-Pauline Grijalva RN RN vc1 Tere Mcdowell Tawney RN RN tm6
[2024-08-14 20:32] VITALS: TEMP 98.6
[2024-08-14 20:37] VITALS: BP 118/84; O2SAT 98
== END 2024-08-14 20:04 | disposition home or self-care (01) ==
LOC: ER 17:30
DX: M25.562 Pain in left knee (principal); E11.9 Type 2 diabetes mellitus without complications; E78.00 Pure hypercholesterolemia, unspecified
CPT/HCPCS: 93971; 99283